=== PATIENT | male | born 1950 | race African-American/Black ===

== ENCOUNTER 2016-12-21 17:46 | Emergency (ER) | payer MEDICARE, MEDICAID | END 2016-12-21 18:54 | disposition home or self-care (01) | LOC: ERS 17:46 | DX: K08.89 Other specified disorders of teeth and supporting structures (principal); E78.5 Hyperlipidemia, unspecified; I25.2 Old myocardial infarction; E11.9 Type 2 diabetes mellitus without complications; F17.290 Nicotine dependence, other tobacco product, uncomplicated; I10 Essential (primary) hypertension | CPT/HCPCS: 99283 ==

== ENCOUNTER 2018-06-07 10:38 | Emergency (ER) | payer MEDICARE, MEDICAID ==
--- NOTE | 2018-06-07 11:26 | RAD ---
CHEST 2 VIEWS:: Date: 06/07/18 HISTORY: Cough. COMPARISON: 05/11/16. FINDINGS: Right-sided ICD. Heart size is normal. The lungs appear clear. IMPRESSION: Right-sided ICD. No acute intrathoracic disease. Atherosclerosis of aorta. POS: [facility]
== END 2018-06-07 13:09 | disposition home or self-care (01) ==
LOC: ERS 10:38
DX: J20.9 Acute bronchitis, unspecified (principal); E78.5 Hyperlipidemia, unspecified; I25.2 Old myocardial infarction; E11.9 Type 2 diabetes mellitus without complications; I10 Essential (primary) hypertension; F17.210 Nicotine dependence, cigarettes, uncomplicated; M10.9 Gout, unspecified; Z79.84 Long term (current) use of oral hypoglycemic drugs; Z79.899 Other long term (current) drug therapy
CPT/HCPCS: 71046; 94640; J7620

== ENCOUNTER 2018-06-15 16:30 | Outpatient (CLI) | payer MEDICARE, MEDICAID ==
--- NOTE | 2018-06-15 17:20 | RAD ---
SINUSES THREE VIEWS: History: Sinusitis. FINDINGS: The frontal air cells and maxillary cells appear aerated with no opacification or air fluid level clarita ntified. Visualized ethmoid and sphenoid air cells also appear clear. IMPRESSION: Unremarkable sinuses. POS: [facility]
== END 2018-06-15 16:31 | disposition home or self-care (01) ==
LOC: BICRAD 16:30
PROVIDERS: ATTEND Internal Medicine
DX: J32.9 Chronic sinusitis, unspecified (principal)
CPT/HCPCS: 70220

== ENCOUNTER 2019-02-23 10:47 | Emergency (ER) | payer MEDICARE, MEDICAID ==
--- NOTE | 2019-02-23 11:55 | RAD ---
EXAM: 3 views of the lumbosacral spine HISTORY: Right low back pain COMPARISON: None FINDINGS: 3 views of the lumbosacral spine shows normal height and alignment of the vertebral bodies without fracture or subluxation. The intervertebral discs are narrowed in the lower lumbar spine with small surrounding osteophytes. Vacuum phenomenon is seen at L4/5 and L5/S1. The sacroiliac joints are unremarkable. IMPRESSION: Degenerative changes of the lumbar spine as above.
[2019-02-23 13:21] LABS: #Basophils 0.1 thou/uL (0.0-0.2); #Eosinphils 0.2 thou/uL (0.0-0.7); #Lymphocytes 2.1 thou/uL (1.20-3.40); #Monocytes 0.5 thou/uL (0.11-0.59); #Neutrophils 4.2 thou/uL (1.40-6.50); %Basophils 1.2 % (0.0-1.0); %Eosinophils 2.4 % (0.0-10.0); %Lymphocytes 30.4 % (21.0-51.0); %Monocytes 6.6 % (0.0-10.0); %Neutrophils 59.4 % (42.0-75.0); Hemoglobin 13.7 g/dL (14.0-18.0); Mean Corpuscular HGB CONC 31.9 g/dL (32.0-36.0); Mean Corpuscular Hemoglobin 27.6 pg (27.0-31.0); Mean Corpuscular Volume 86.4 fL (78.0-98.0); Mean Platelet Volume 10.7 fL (7.4-10.4); Platelet Count 160 thou/uL (130-400); RBC Distribution Width 13.9 % (11.5-14.5); Red Blood Cell (RBC) Count 4.96 mill/uL (4.70-6.10); White Blood Cell (WBC) Count 7.1 thou/uL (4.8-10.8)
[2019-02-23 13:48] LABS: ALT (SGPT) 8 U/L (8-55); AST (SGOT) 12 U/L (5-34); Albumin 3.7 g/dL (3.4-4.8); Alkaline Phosphatase 64 U/L (40-110); Anion Gap 10 mmol/L (10-20); BUN (Urea Nitrogen) 15 mg/dL (8.4-25.7); Bilirubin, Total 0.3 mg/dL (0.2-1.2); Calc. Creatinine Clearance 0 mL/min (70-130); Calcium 8.9 mg/dL (7.8-10.44); Carbon Dioxide 30 mmol/L (23-31); Chloride 106 mmol/L (98-107); Estimated GFR-MDRD 73; Globulin 4.2 g/dL (2.4-3.5); Glucose 82 mg/dL (80-115); Lipase 126 U/L (8-78); Potassium 3.7 mmol/L (3.5-5.1); Protein, Total 7.9 g/dL (5.8-8.1); Sodium 142 mmol/L (136-145)
[2019-02-23 14:26] LABS: Bilirubin Negative (Negative); Blood, Urine Negative (Negative); Clarity Clear (Clear); Glucose, Urine (Dipstick) Normal (Negative); Leukocyte Negative Leu/uL (Negative); Nitrite Negative (Negative); Protein, Urine (Dipstick) Negative (Neg-Trace); Urobilinogen Normal mg/dL (Less than 2)
--- NOTE | 2019-02-23 14:29 | ULT ---
GALLBLADDER ULTRASOUND: HISTORY: Right upper quadrant abdominal pain FINDINGS: The liver demonstrates homogeneous echotexture without focal mass or intrahepatic biliary ductal dila tation. No gallstones, gallbladder wall thickening or pericholecystic fluid are seen. The right kidney and visualized portions of the pancreas are normal. The common duct [id number] in diameter. No free fluid is seen in the Peterson's pouch. IMPRESSION: No significant abnormalities are identified.
--- NOTE | 2019-02-23 15:38 | CT ---
CT ABDOMEN AND PELVIS WITH IV CONTRAST: HISTORY: Right upper abdominal pain, nausea and burning micturition COMPARISON: None FINDINGS: The lung bases are clear. The liver, spleen, pancreas, adrenal glands and kidneys appear normal. No c alcified gallstones are seen. No free air, free fluid or lymphadenopathy seen in the abdomen or pelvis. The small bowel loops are not abnormally dilated. An abnormal appendix is not seen. There are vascular calcifications without evidence of aneurysmal dilatation of the abdominal aorta. There are degenerative changes in the spine. The prostate is enlarged. There are small fat-containing ingui nal hernia. IMPRESSION: No acute process.
== END 2019-02-23 16:13 | disposition home or self-care (01) ==
LOC: ERS 10:47
DX: E78.41 Elevated Lipoprotein(a) (principal); R10.9 Unspecified abdominal pain; E11.9 Type 2 diabetes mellitus without complications; I25.2 Old myocardial infarction; F17.210 Nicotine dependence, cigarettes, uncomplicated; Z79.84 Long term (current) use of oral hypoglycemic drugs; Z79.899 Other long term (current) drug therapy; Z79.82 Long term (current) use of aspirin; Z79.891 Long term (current) use of opiate analgesic
CPT/HCPCS: 36415; 72100; 74177; 76705; 80053; 81003; 83690; 85025; 96360

== ENCOUNTER 2019-05-03 12:16 | Emergency (ER) | payer MEDICARE, OTHER ==
--- NOTE | 2019-05-03 13:49 | CT ---
CT ABDOMEN PELVIS WITHOUT IV CONTRAST: HISTORY:Left-sided flank pain, dysuria COMPARISON: 06/10/2018 DISCLAIMER: Absence of oral and IV contrast reduces the sensitivity of the exam particularly for the evaluation of solid organs and bowel. FINDINGS: The lung bases are clear. No free air or free fluid is seen in the abdomen or pelvis. No calcified ga llstones are noted. There is a punctate calculus in the left kidney. No calculi are seen in the right kidney, either uret ers or the urinary bladder. No hydroureteronephrosis seen on either side. The prostate is enlarged. There are vascular calcifications without evidence of aneurysmal dilatation of the abdominal aorta. D egenerative changes are seen in the spine. There is a small fat-containing inguinal hernia. IMPRESSION: Punctate nonobstructing left renal calculus.
[2019-05-03 13:52] LABS: Bilirubin Negative (Negative); Blood, Urine Negative (Negative); Clarity Clear (Clear); Glucose, Urine (Dipstick) Normal (Negative); Leukocyte Negative Leu/uL (Negative); Nitrite Negative (Negative); Protein, Urine (Dipstick) Negative (Neg-Trace); Urobilinogen Normal mg/dL (Less than 2)
[2019-05-03 14:18] LABS: #Basophils 0.1 thou/uL (0.0-0.2); #Eosinphils 0.1 thou/uL (0.0-0.7); #Lymphocytes 2.2 thou/uL (1.20-3.40); #Monocytes 0.4 thou/uL (0.11-0.59); #Neutrophils 4.8 thou/uL (1.40-6.50); %Eosinophils 1.9 % (0.0-10.0); %Lymphocytes 28.6 % (21.0-51.0); %Monocytes 5.6 % (0.0-10.0); %Neutrophils 62.9 % (42.0-75.0); Hemoglobin 14.1 g/dL (14.0-18.0); Mean Corpuscular HGB CONC 32.6 g/dL (32.0-36.0); Mean Corpuscular Volume 85.8 fL (78.0-98.0); Platelet Count 164 thou/uL (130-400); RBC Distribution Width 13.5 % (11.5-14.5); Red Blood Cell (RBC) Count 5.05 mill/uL (4.70-6.10); White Blood Cell (WBC) Count 7.7 thou/uL (4.8-10.8)
[2019-05-03 14:39] LABS: ALT (SGPT) 7 U/L (8-55); AST (SGOT) 14 U/L (5-34); Albumin 3.5 g/dL (3.4-4.8); Alkaline Phosphatase 61 U/L (40-110); Anion Gap 13 mmol/L (10-20); BUN (Urea Nitrogen) 18 mg/dL (8.4-25.7); Bilirubin, Total 0.3 mg/dL (0.2-1.2); Calc. Creatinine Clearance 0 mL/min (70-130); Calcium 8.6 mg/dL (7.8-10.44); Carbon Dioxide 21 mmol/L (23-31); Chloride 110 mmol/L (98-107); Estimated GFR-MDRD 67; Globulin 4.3 g/dL (2.4-3.5); Glucose 151 mg/dL (80-115); Potassium 3.8 mmol/L (3.5-5.1); Protein, Total 7.8 g/dL (5.8-8.1); Sodium 140 mmol/L (136-145)
[2019-05-03] MEDS ORDERED: Ketorolac Tromethamine 60 MG/2 ML VIAL ONE (14:56)
== END 2019-05-03 15:30 | disposition home or self-care (01) ==
LOC: ERS 12:16
DX: M54.5 Low back pain (principal); F17.210 Nicotine dependence, cigarettes, uncomplicated; E11.9 Type 2 diabetes mellitus without complications; M10.9 Gout, unspecified; F17.290 Nicotine dependence, other tobacco product, uncomplicated; I10 Essential (primary) hypertension; I25.2 Old myocardial infarction; Z79.899 Other long term (current) drug therapy; Z79.891 Long term (current) use of opiate analgesic; Z79.82 Long term (current) use of aspirin; Z79.84 Long term (current) use of oral hypoglycemic drugs
CPT/HCPCS: 36415; 74176; 80053; 81003; 85025; 87086; 96372; J1885

== ENCOUNTER 2019-06-28 10:54 | Emergency (ER) | payer MEDICARE, OTHER ==
[2019-06-28 11:40] LABS: Bilirubin Negative (Negative); Blood, Urine Negative (Negative); Clarity Clear (Clear); Glucose, Urine (Dipstick) Normal (Negative); Leukocyte Negative Leu/uL (Negative); Nitrite Negative (Negative); Protein, Urine (Dipstick) 20 mg/dL (Neg-Trace); Urobilinogen Normal mg/dL (Less than 2)
--- NOTE | 2019-06-28 11:54 | CT ---
CT abdomen and pelvis noncontrast HISTORY: Flank pain. COMPARISON: 05/03/2019. FINDINGS: Each renal collecting system, ureter, and urinary bladder are decompressed. The 0.2 cm calc ulus at the superior pole of the left kidney is unchanged. It may be vascular in origin, as there are other arterial calcification throughout the abdomen. Lack of contrast limits evaluation for other abnormalities. No evidence of bowel obstruction. There a re degenerative changes lumbar spine. Subtle stranding within the fat immediately surrounding the pancreatic head. No free fluid or free ai r. IMPRESSION : Tiny nonobstructing left renal calculus appears stable. Subtle inflammation adjacent to the pancreatic head. Clinical correlation regarding other signs and s ymptoms of acute pancreatitis is required. Atherosclerosis.
[2019-06-28 11:59] LABS: #Eosinphils 0.2 thou/uL (0.0-0.7); #Lymphocytes 2.4 thou/uL (1.20-3.40); #Monocytes 0.5 thou/uL (0.11-0.59); #Neutrophils 4.5 thou/uL (1.40-6.50); %Basophils 0.6 % (0.0-1.0); %Eosinophils 2.2 % (0.0-10.0); %Lymphocytes 31.3 % (21.0-51.0); %Monocytes 6.4 % (0.0-10.0); %Neutrophils 59.6 % (42.0-75.0); Mean Corpuscular HGB CONC 31.8 g/dL (32.0-36.0); Mean Corpuscular Hemoglobin 26.9 pg (27.0-31.0); Mean Corpuscular Volume 84.7 fL (78.0-98.0); Mean Platelet Volume 11.5 fL (7.4-10.4); Platelet Count 145 thou/uL (130-400); RBC Distribution Width 14.1 % (11.5-14.5); Red Blood Cell (RBC) Count 5.21 mill/uL (4.70-6.10); White Blood Cell (WBC) Count 7.6 thou/uL (4.8-10.8)
[2019-06-28 12:38] LABS: ALT (SGPT) 7 U/L (8-55); AST (SGOT) 17 U/L (5-34); Albumin 3.5 g/dL (3.4-4.8); Alkaline Phosphatase 60 U/L (40-110); Anion Gap 10 mmol/L (10-20); BUN (Urea Nitrogen) 14 mg/dL (8.4-25.7); Bilirubin, Total 0.5 mg/dL (0.2-1.2); Calc. Creatinine Clearance 0 mL/min (70-130); Calcium 8.7 mg/dL (7.8-10.44); Carbon Dioxide 26 mmol/L (23-31); Chloride 105 mmol/L (98-107); Estimated GFR-MDRD 63; Globulin 4.2 g/dL (2.4-3.5); Glucose 152 mg/dL (80-115); Protein, Total 7.7 g/dL (5.8-8.1); Sodium 137 mmol/L (136-145)
== END 2019-06-28 14:09 | disposition home or self-care (01) ==
LOC: ERS 10:54
DX: K85.90 Acute pancreatitis without necrosis or infection, unspecified (principal); I10 Essential (primary) hypertension; M10.9 Gout, unspecified; E78.5 Hyperlipidemia, unspecified; I25.2 Old myocardial infarction; E11.9 Type 2 diabetes mellitus without complications; F17.210 Nicotine dependence, cigarettes, uncomplicated; Z79.899 Other long term (current) drug therapy; Z79.82 Long term (current) use of aspirin; Z79.84 Long term (current) use of oral hypoglycemic drugs
CPT/HCPCS: 36415; 74176; 80053; 81003; 83605; 83690; 85025; 96360

== ENCOUNTER 2019-09-24 12:04 | Emergency (ER) | payer MEDICARE, MEDICAID, OTHER ==
[2019-09-25 13:14] LABS: SARS-CoV-2 MS2 Positive; SARS-CoV-2 N Gene Negative; SARS-CoV-2 S Gene Negative; SARS-CoV-2 orf1ab Negative
== END 2019-09-24 12:53 | disposition home or self-care (01) ==
LOC: ERS 12:04
DX: R06.2 Wheezing (principal); R06.02 Shortness of breath; Z20.828 Contact with and (suspected) exposure to other viral communicable diseases; I10 Essential (primary) hypertension; I25.2 Old myocardial infarction; E11.9 Type 2 diabetes mellitus without complications; F17.290 Nicotine dependence, other tobacco product, uncomplicated
CPT/HCPCS: 99283; U0003; 87635

== ENCOUNTER 2019-09-29 09:30 | Inpatient (IN) | payer MEDICARE, MEDICAID ==
--- NOTE | 2019-09-29 10:18 | RAD ---
PORTABLE SUPINE CHEST: Date: 09/29/2019 INDICATION: CPR. Code. COMPARISON: Chest exam of 06/07/2018. FINDINGS/IMPRESSION: ET tube and NG tube are in place. There is cardiomegaly with vascular congestion, which is accentuate d by the supine projection. No pneumothorax or consolidation. Hazy perihilar densities could represen t edema or infiltrate. The AICD leads and pacemaker leads appear unchanged in position. POS: [facility]
[2019-09-29 10:34] LABS: #Eosinphils 0.4 thou/uL (0.0-0.7); #Lymphocytes 4.6 thou/uL (1.20-3.40); #Monocytes 0.6 thou/uL (0.11-0.59); #Neutrophils 5.5 thou/uL (1.40-6.50); %Basophils 0.3 % (0.0-1.0); %Eosinophils 3.9 % (0.0-10.0); %Monocytes 5.2 % (0.0-10.0); %Neutrophils 49.6 % (42.0-75.0); Hemoglobin 11.9 g/dL (14.0-18.0); Mean Corpuscular HGB CONC 29.6 g/dL (32.0-36.0); Mean Corpuscular Hemoglobin 26.8 pg (27.0-31.0); Mean Corpuscular Volume 90.4 fL (78.0-98.0); Mean Platelet Volume 10.7 fL (7.4-10.4); Platelet Count 196 thou/uL (130-400); RBC Distribution Width 14.2 % (11.5-14.5); Red Blood Cell (RBC) Count 4.46 mill/uL (4.70-6.10); White Blood Cell (WBC) Count 11.1 thou/uL (4.8-10.8)
[2019-09-29 10:45] LABS: Acetaminophen Less than 6.0 mcg/mL (10.0-30.0); Alcohol Less than 10 mg/dL (Less than 10); CK (CPK) 88 U/L (30-200); Lipase 110 U/L (8-78); Magnesium 4.7 mg/dL (1.6-2.6); Salicylate Less than 8.0 mg/dL (15.0-30.0)
[2019-09-29 10:50] LABS: ALT (SGPT) 50 U/L (8-55); AST (SGOT) 49 U/L (5-34); Albumin 3.2 g/dL (3.4-4.8); Alkaline Phosphatase 59 U/L (40-110); Anion Gap 23 mmol/L (10-20); BUN (Urea Nitrogen) 16 mg/dL (8.4-25.7); Bilirubin, Total 0.4 mg/dL (0.2-1.2); Calc. Creatinine Clearance 0 mL/min (70-130); Carbon Dioxide 17 mmol/L (23-31); Chloride 105 mmol/L (98-107); Estimated GFR-MDRD 44; Globulin 3.2 g/dL (2.4-3.5); Glucose 261 mg/dL (83-110); INR-International Normal Ratio 1.2; PTT 31.7 sec (22.9-36.1); Protein, Total 6.4 g/dL (5.8-8.1); Prothrombin Time 15.6 sec (12.0-14.7); Sodium 141 mmol/L (136-145)
[2019-09-29 10:51] LABS: Actual Bicarbonate (HCO3a) 13.4 mEq/L (22-28); Analyzer IN Cardio ER; Base Excess (BEa) -16.7 mEq/L (-2.0 to +3.0); CO2 Tension 48.7 mmHg (35.0-45.0); Calcium, Ionized (arterial) 1.24 mmol/L (1.12-1.30); Carboxyhemoglobin (COHb) 0.4 gm% (0.0-3.0); Hemoglobin (Hb) 12.5 g/dL (14.0-18.0); O2 Tension (PaO2), arterial 210.5 mmHg (> 70.0); Potassium - ABG Lab 4.36 mmol/L (3.70-5.30)
[2019-09-29 11:07] LABS: CKMB 1.7 ng/mL (0-6.6)
[2019-09-29 11:10] LABS: ALV-art Gradient 441.625 (0-20); Puncture Site LRA; pH, Arterial 7.06 (7.35-7.45)
[2019-09-29] MEDS ORDERED: Norepinephrine 8 MG/0.9% NS 250 ML ONE (11:12)
[2019-09-29 11:22] LABS: RBC Morphology Normal
[2019-09-29 11:47] LABS: SARS-CoV-2 NAA Rapid Test Not Detected (NotDetected)
--- NOTE | 2019-09-29 11:59 | CT ---
Exam: Chest CT without contrast HISTORY: CPR in progress. Pacemaker issues. Ventricular tachycardia. COMPARISON: none FINDINGS: Lower neck and axilla: No masses or lymphadenopathy Mediastinum: Enlarged prevascular lymph node measures 1.5 x 0.9 cm. Adjacent enlarged prevascular lym ph node is noted. Normal heart size. No pericardial effusion. Pacing device: There is a transvenous pacemaker with lead positioned in the region of the right atriu m, right ventricle. Additional left-sided transvenous pacemaker is are also noted. The leads appear to terminate in the region right atrium, right ventricle and possibly the coronary sinus. There is a lead that crosses midline appears to course back and may terminate in the region of the right atrium. The exact course of the lead is difficult to evaluate due to motion and adjacent leads. Visualized aorta has a grossly normal caliber Subdiaphragmatic structures do not demonstrate any acute abnormality Pleural spaces: Small to moderate bilateral pleural effusions. No pneumothorax LUNGS: Bibasilar consolidation may represent atelectasis, pneumonia or mass. Additional consolidation is noted in the left and right upper lobe adjacent to the major fissure. Patchy groundglass opacities in the lung parenchyma are identified. Trachea: Endotracheal tube terminates at the midportion of the trachea. Nasogastric tube extends stom ach. No lytic or blastic lesions within the osseous structures IMPRESSION: 1. Extensive pacing wires as described above. Limited evaluation due to motion and the overall number wires present. 2. Bilateral pleural effusion with adjacent consolidation which may represent atelectasis, aspiration .
[2019-09-29] MEDS ORDERED: Lorazepam 2 MG/ML VIAL ONE (12:24)
[2019-09-29 12:35] LABS: Actual Bicarbonate (HCO3a) 17.3 mEq/L (22-28); Analyzer IN Cardio ER; Calcium, Ionized (arterial) 1.21 mmol/L (1.12-1.30); Carboxyhemoglobin (COHb) 0.3 gm% (0.0-3.0); Hemoglobin (Hb) 12.5 g/dL (14.0-18.0); O2 Tension (PaO2), arterial 101.5 mmHg (> 70.0); Potassium - ABG Lab 4.58 mmol/L (3.70-5.30); pH, Arterial 6.98 (7.35-7.45)
[2019-09-29 12:36] LABS: Puncture Site RFA
[2019-09-29] MEDS ORDERED: Sodium Bicarb 50 MEQ/50 ML Abboject 8.4% SYRINGE ONE ×3 (12:39→13:07)
[2019-09-29] MEDS ORDERED: Sodium Bicarbonate 2.5 MEQ/5 ML VIAL ONE (12:39)
[2019-09-29] MEDS ORDERED: Calcium Chloride 1 GM/10 ML Abboject SYRINGE ONE (13:07)
[2019-09-29] MEDS ORDERED: EPINEPHrine 1 MG/10 ML Abboject SYRINGE ONE ×2 (13:07)
[2019-09-29] MEDS ORDERED: Magnesium 5 GM/10 ML Abboject SYRINGE ONE (13:07)
[2019-09-29] MEDS ORDERED: Amiodarone 150 MG/3 ML VIAL ONE (13:07)
--- NOTE | 2019-09-29 14:02 | CT ---
CT HEAD WITHOUT IV CONTRAST COMPARISON: 08/24/2014 HISTORY: Altered mental status. Patient is post CPR. Respiratory distress. TECHNIQUE: Axial CT imaging at 5 mm intervals from vertex through skull base without contrast FINDINGS: The randall-white differentiation is maintained with evidence of mild chronic small vessel ischemic espana ges. Mild cerebral volume loss is present. There is no evidence of an acute cortical infarction, hemorrhage, mass effect, or midline shift. The ventricular system is normal in size, shape, and posit ion. Mucosal thickening is seen in the ethmoidal air cells bilaterally. Mucus retention cyst left maxillar y antrum. Trace mucosal thickening right sphenoid sinus. Mastoid air cells are clear. Partial visualization of endotracheal tube and nasogastric tubes are seen. Osseous structures appear intact. No other interval change. IMPRESSION: 1. No acute intracranial abnormality demonstrated.
--- NOTE | 2019-09-29 14:21 | PDOC.HHP ---
Hospitalist HPI - History of Present Illness sob and syncope History of Present Illness: 69 years old -[place] Citizen male with past medical history significant for cardiomyopathy with EF of 15% status post AICD. EMS called today as patient was having more and more short of breath when they arrived patient was alert however he became lethargic and had lost a pulse initially found to be in V. tach then shocked him and patient began CPR patient then went to V. fib patient found to be in V. tach and V. fib CPR was initiated and epi was given at 923 this morning another 1 at 933 as well as amnio and patient had LMA on arrival to the emergency room with CPR in progress and during my exam he is intubated on Levophed and epinephrine drip Case was discussed with cardiology reported the patient failed to follow-up with him. during my exam patient is jerking movement no follow commands or answer question mechanical ventilation is being moved to CCU. Past medical history significant for advanced cardiomyopathy with EF 15% hypertension type 2 diabetes COPD pulmonary hypertension chronic left bundle branch block and obesity Allergies no known drug allergies Social history patient has history of no alcohol denies tobacco and no illicit drug use as per record Family history Per records significant for diabetes and heart blocks Hospitalist ROS - Review of Systems ROS unobtainable: due to mental status - Medication Medications: Medication Instructions Recorded Confirmed Type Aspirin [Ecotrin Low Strength] 81 mg PO HS 02/15/13 02/15/13 History Carvedilol [Coreg] 25 mg PO BID 02/15/13 02/15/13 History Lisinopril [Zestril] 5 mg PO HS 02/15/13 02/15/13 History Potassium Chloride [K-Dur] 20 meq PO HS 02/15/13 02/15/13 History Pravastatin Sodium [Pravachol] 20 mg PO HS 02/15/13 02/15/13 History Ventolin HFA Inhaler 2 puff INH Q4HR PRN 02/15/13 02/15/13 History glipiZIDE 5 mg PO DAILY-AC 02/15/13 02/15/13 History metFORMIN HCl 1,000 mg PO BID-WM 02/15/13 02/15/13 History Acetaminophen [Tylenol Regular 650 mg PO Q4H PRN #0 tab 02/18/13 Rx Strength] Cefadroxil Hydrate [Duricef] 500 mg PO BID 02/18/13 02/18/13 History Furosemide [Lasix] 40 mg PO 0900,1400 #0 tab 02/18/13 Rx Hospitalist History - Past Medical History Source: old records Cardiac: reports: CAD, CHF - Exam General Appearance: awake alert General - other findings: Orally intubated jerking and acute distress ENT: dry oral mucosa Neck: supple Heart: RRR Respiratory: no wheezes, no rales Respiratory - other findings: On mechanical ventilation Gastrointestinal: soft, non-tender Extremities: no cyanosis Skin: no lesions Neurological - other findings: Unable to obtain patient not following commands Musculoskeletal - other findings: Drinking movement Psychiatric: lethargic Hospitalist Results - Labs Result Diagrams: 09/29/19 10:16 09/29/19 10:16 Lab results: WBC 11.1 thou/uL (4.8-10.8) H 09/29/19 10:16 Hgb 11.9 g/dL (14.0-18.0) L 09/29/19 10:16 Hct 40.4 % (42.0-52.0) L 09/29/19 10:16 MCV 90.4 fL (78.0-98.0) 09/29/19 10:16 Plt Count 196 thou/uL (130-400) 09/29/19 10:16 Neutrophils % 49.6 % (42.0-75.0) 09/29/19 10:16 ABG pH 6.98 (7.35-7.45) L* 09/29/19 12:22 ABG pCO2 75.0 mmHg (35.0-45.0) H* 09/29/19 12:22 ABG pO2 101.5 mmHg (> 70.0) H 09/29/19 12:22 Sodium 141 mmol/L (136-145) 09/29/19 10:16 Potassium 4.0 mmol/L (3.5-5.1) 09/29/19 10:16 Chloride 105 mmol/L (98-107) 09/29/19 10:16 Carbon Dioxide 17 mmol/L (23-31) L 09/29/19 10:16 BUN 16 mg/dL (8.4-25.7) 09/29/19 10:16 Creatinine 1.84 mg/dL (0.7-1.3) H 09/29/19 10:16 Glucose 261 mg/dL (83-110) H 09/29/19 10:16 Lactic Acid 7.0 mmol/L (0.5-2.2) H* 09/29/19 13:02 Calcium 9.0 mg/dL (7.8-10.44) 09/29/19 10:16 Total Bilirubin 0.4 mg/dL (0.2-1.2) 09/29/19 10:16 AST 49 U/L (5-34) H 09/29/19 10:16 ALT 50 U/L (8-55) 09/29/19 10:16 Alkaline Phosphatase 59 U/L (40-110) 09/29/19 10:16 Creatine Kinase 88 U/L (30-200) 09/29/19 10:16 CK-MB (CK-2) 1.7 ng/mL (0-6.6) 09/29/19 10:16 Troponin I 0.042 ng/mL (< 0.028) H 09/29/19 10:16 C-Reactive Protein 1.62 mg/dL (= or < 0.5) H 09/29/19 10:16 B-Natriuretic Peptide 763.6 pg/mL (0-100) H 09/29/19 10:16 Serum Total Protein 6.4 g/dL (5.8-8.1) 09/29/19 10:16 Albumin 3.2 g/dL (3.4-4.8) L 09/29/19 10:16 Lipase 110 U/L (8-78) H 09/29/19 10:16 - Radiology Interpretation CT scan - chest Additional Comment: Extensive pacing wires with bilateral pleural effusion with adjacent consolidation may represent atelectasis versus aspiration CT scan - head Additional Comment: No acute intracranial abnormalities Hospitalist H&P A/P - Problem (1) Cardiac arrest Code(s): I46.9 - CARDIAC ARREST, CAUSE UNSPECIFIED Status: Acute (2) Acute respiratory disease Code(s): J06.9 - ACUTE UPPER RESPIRATORY INFECTION, UNSPECIFIED Status: Acute (3) Cardiomyopathy Code(s): I42.9 - CARDIOMYOPATHY, UNSPECIFIED Status: Active (4) Chronic obstructive lung disease Code(s): J44.9 - CHRONIC OBSTRUCTIVE PULMONARY DISEASE, UNSPECIFIED Status: Active (5) Diabetes mellitus type 2 Code(s): E11.9 - TYPE 2 DIABETES MELLITUS WITHOUT COMPLICATIONS Status: Active - Plan Plan: Patient most likely rest due to arrhythmia given his low EF of 15%, will need pacemaker AICD interrogation Patient will be admitted to CCU unit, will continue mechanical ventilation, we are consulted cardiology and will notify bag liner Mechanical ventilation and vent management as per CCU theraputic hypothermia as per cc Continue with Levophed and epinephrine Follow further cardiology recommendations Start on broad-spectrum antibiotics Continue with supportive care Monitor electrolytes and replace as needed DVT prophylaxis with Lovenox GI prophylaxis Patient is full code for now will discuss with family regarding poor prognosis Patient will be admitted under hospitalist services to the ICU with anticipated length of stay for over 2 midnights
[2019-09-29] MEDS ORDERED: Vecuronium 10 MG VIAL ONE (14:26)
[2019-09-29 14:44] LABS: Actual Bicarbonate (HCO3a) 19.1 mEq/L (22-28); CO2 Tension 45.3 mmHg (35.0-45.0); Calcium, Ionized (arterial) 1.13 mmol/L (1.12-1.30); Carboxyhemoglobin (COHb) 0.5 gm% (0.0-3.0); Hemoglobin (Hb) 12.3 g/dL (14.0-18.0); O2 Tension (PaO2), arterial 115.9 mmHg (> 70.0); Potassium - ABG Lab 4.45 mmol/L (3.70-5.30)
[2019-09-29] MEDS ORDERED: Dextrose 5% in Water 1,000 ML IV PRN (14:45)
[2019-09-29] MEDS ORDERED: HumaLOG 300 UNITS/3 ML VIAL SC PRN (14:45)
[2019-09-29] MEDS ORDERED: Dextrose 50% Abboject 50 ML SYRINGE SLOW IVP PRN (14:45)
[2019-09-29 14:47] LABS: ALV-art Gradient 540.475 (0-20); Puncture Site RRA; pH, Arterial 7.24 (7.35-7.45)
[2019-09-29] MEDS ORDERED: Norepinephrine 8 MG/0.9% NS 250 ML IVPB SCH (15:00)
[2019-09-29] MEDS ORDERED: Ventilator Sedation Protocol 1 EACH FS SCH (15:00)
[2019-09-29] MEDS ORDERED: Propofol BOLUS 1,000 MG/100 ML VIAL IV PRN (15:07)
[2019-09-29] MEDS ORDERED: DISCONTINUE PREVIOUS NARCOTIC PAIN MEDICATIONS AND BENZODIAZEPINES FS SCH (15:07)
[2019-09-29] MEDS ORDERED: Fentanyl BOLUS 250 ML IVPB PRN (15:07)
[2019-09-29] MEDS ORDERED: Morphine 2 MG/ML VIAL SLOW IVP PRN (15:07)
[2019-09-29] MEDS ORDERED: fentaNYL Citrate/PF 2,000 MCG in Sodium Chloride 0.9% 60 ML IV SCH (15:07)
[2019-09-29] MEDS: Vecuronium 10 MG VIAL IVP PRN ×3 (15:24→21:15)
[2019-09-29] MEDS: Lorazepam 2 MG/ML VIAL SLOW IVP PRN ×3 (15:25→18:13)
[2019-09-29] MEDS: Sodium Chloride 0.9% 1,000 ML IV SCH (15:33)
--- NOTE | 2019-09-29 15:42 | CON ---
DATE OF CONSULTATION: 09/29/2019 minutes of critical care time. HISTORY: I was notified by the nurses around 2:30 of this patient's arrival to the CCU. I had not been called previously by the hospitalist or the ER doctor. The patient apparently arrived at the emergency room at around 9:30 this morning, full arrest, after being found down at home. I am told he had LMA on arrival. He was subsequently intubated. There was a question whether or not he was receiving oxygen through the LMA. It took several more minutes for him to achieve a pulse. It looks like total down time was well over 30 minutes. On arrival to the CCU, the patient was having profound myoclonic jerking, which required paralysis. I have no idea how long he has been jerking that hard. PAST MEDICAL HISTORY: 1. cardiomyopathy with EF 15%. 2. AICD placement. 3. Mild GALEN by sleep study done in 2015. 4. Previous ventricular fibrillation detected by AICD in 2012. 5. History of left bundle branch block. 6. Class III heart failure. 7. Hyperlipidemia. 8. Diabetes mellitus. SOCIAL HISTORY: Apparently he does not drink, does not smoke, does not use illicit drugs. ALLERGIES: NONE. PAST SURGICAL HISTORY: AICD placement. REVIEW OF SYSTEMS: Cannot be obtained. The patient is currently intubated. PHYSICAL EXAMINATION: VITAL SIGNS: Temperature was 98 when he arrived in the CCU, pulse 67, O2 saturation 99%, blood pressure 150/86. This patient is intubated and paralyzed. HEENT: Pupils are 4 mm, but react to light. Sclerae anicteric. Oropharynx, ET tube and OG tube in place. NECK: No adenopathy or JVD. CHEST: AICD palpable upper quadrant of chest. Lungs with crackles bilaterally. CARDIOVASCULAR: S1 and S2 muffled. ABDOMEN: Soft, obese, nontender, and nondistended. EXTREMITIES: No clubbing or cyanosis. He has a femoral triple lumen on the right. He has an anterior tibial interosseous catheter in place. LABORATORY DATA: Sodium 141, potassium 4.0, chloride 105, CO2 of 17, BUN 16, creatinine 1.8, glucose 261. Lactate is 12.7. BNP 763. Lipase 110. White blood cell count 11.1, hematocrit 40, and platelet count 196. INR 1.2. A pH of 7.23, pCO2 of 38, PO2 of 141, SIMV rate 30, tidal volume 500, PEEP 5, pressure support 10, FiO2 of 100%. His COVID rapid test was negative. His x-ray showed the proper ET tube placement without mass, effusion, or infiltrate. The EKG has not come upstairs from the emergency room yet, so I have not been able to review that. ASSESSMENT: 1. Sudden cardiac , presumed secondary to ventricular fibrillation. 2. Out of hospital arrest with prolonged down time. 3. Myoclonic jerking reflective of profound neurologic damage. 4. Underlying cardiomyopathy. 5. Diabetes mellitus. 6. Acute respiratory failure requiring mechanical ventilation. 7. Metabolic acidosis secondary to lactic acidosis from prolonged down time. PLAN: 1. Continue mechanical ventilation at current settings. 2. Levophed and epinephrine as needed for hypotension. 3. Cardiology consult. 4. Initiate Keppra in case this is underlying seizures. 5. Paralytics as needed. 6. Therapeutic hypothermia. 7. Protonix for GI prophylaxis and Lovenox for DVT prophylaxis. The above encompassed 70 minutes of critical care time. Job ID: [id number]
[2019-09-29] MEDS ORDERED: Pantoprazole 40 MG VIAL IVP SCH (15:45)
[2019-09-29] MEDS ORDERED: levETIRAcetam In NaCl (Iso-Os) 1,000 MG in Premix Bag 1 BAG IVPB SCH ×3 (15:45→21:00)
[2019-09-29] MEDS ORDERED: Enoxaparin Sodium 40 MG/0.4 ML SYRINGE SC SCH (15:45)
[2019-09-29] MEDS: Piperacillin/Tazobactam 3.375 GM in Sodium Chloride 0.9% 100 ML IVPB SCH ×2 (16:13→21:41)
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
[2019-09-29] MEDS ORDERED: Piperacillin/Tazobactam 3.375 GM in Sodium Chloride 0.9% 100 ML IVPB SCH (18:00)
[2019-09-29] MEDS: Propofol 1,000 MG/100 ML VIAL IV PRN ×2 (18:14→22:34)
[2019-09-29 20:00] LABS: Bacteria/HPF 4+ HPF (None Seen); Bilirubin Negative (Negative); Blood, Urine 2+ (Negative); Clarity Clear (Clear); Glucose, Urine (Dipstick) Normal (Negative); Ketone, Urine 10 mg/dL (Negative); Leukocyte Negative Leu/uL (Negative); Nitrite Negative (Negative); Protein, Urine (Dipstick) 50 mg/dL (Neg-Trace); Specific Gravity, Urine 1.007 (1.002-1.036); Squamous Epithelial 0-3 HPF (0-3); Transitional Epithelial 0-3 HPF (None Seen); Urobilinogen Normal mg/dL (Less than 2)
[2019-09-29 20:20] LABS: INR-International Normal Ratio 1.3; PTT 33.6 sec (22.9-36.1); Prothrombin Time 16.2 sec (12.0-14.7)
[2019-09-29 20:22] LABS: #Lymphocytes 1.4 thou/uL (1.20-3.40); #Monocytes 0.9 thou/uL (0.11-0.59); #Neutrophils 14.8 thou/uL (1.40-6.50); %Basophils 0.3 % (0.0-1.0); %Eosinophils 0.2 % (0.0-10.0); %Monocytes 5.3 % (0.0-10.0); %Neutrophils 86.3 % (42.0-75.0); Mean Corpuscular HGB CONC 32.5 g/dL (32.0-36.0); Mean Corpuscular Hemoglobin 27.9 pg (27.0-31.0); Mean Corpuscular Volume 85.7 fL (78.0-98.0); Mean Platelet Volume 10.8 fL (7.4-10.4); Platelet Count 165 thou/uL (130-400); RBC Distribution Width 14.1 % (11.5-14.5); White Blood Cell (WBC) Count 17.1 thou/uL (4.8-10.8)
[2019-09-29 20:39] LABS: Anion Gap 15 mmol/L (10-20); BUN (Urea Nitrogen) 30 mg/dL (8.4-25.7); CK (CPK) 601 U/L (30-200); Calc. Creatinine Clearance 53 mL/min (70-130); Calcium 8.3 mg/dL (7.8-10.44); Carbon Dioxide 21 mmol/L (23-31); Chloride 111 mmol/L (98-107); Estimated GFR-MDRD 30; Glucose 124 mg/dL (83-110); Magnesium 3.3 mg/dL (1.6-2.6); Phosphorus 2.9 mg/dL (2.3-4.7); Potassium 3.6 mmol/L (3.5-5.1); Sodium 143 mmol/L (136-145)
[2019-09-29 21:04] LABS: CKMB 11.7 ng/mL (0-6.6)
[2019-09-29] MEDS ORDERED: Sterile Water 10 ML ONE (21:12)
[2019-09-30] MEDS: Vecuronium 10 MG VIAL IVP PRN ×5 (01:51→22:29)
[2019-09-30 01:58] LABS: #Lymphocytes 1.4 thou/uL (1.20-3.40); #Monocytes 0.6 thou/uL (0.11-0.59); #Neutrophils 12.6 thou/uL (1.40-6.50); %Basophils 0.1 % (0.0-1.0); %Eosinophils 0.3 % (0.0-10.0); %Lymphocytes 9.7 % (21.0-51.0); %Monocytes 4.2 % (0.0-10.0); %Neutrophils 85.7 % (42.0-75.0); Hemoglobin 12.4 g/dL (14.0-18.0); Mean Corpuscular HGB CONC 31.7 g/dL (32.0-36.0); Mean Corpuscular Hemoglobin 27.3 pg (27.0-31.0); Mean Corpuscular Volume 85.9 fL (78.0-98.0); Mean Platelet Volume 10.9 fL (7.4-10.4); Platelet Count 163 thou/uL (130-400); RBC Distribution Width 14.2 % (11.5-14.5); Red Blood Cell (RBC) Count 4.54 mill/uL (4.70-6.10); White Blood Cell (WBC) Count 14.7 thou/uL (4.8-10.8)
[2019-09-30 02:04] LABS: INR-International Normal Ratio 1.3; Prothrombin Time 15.8 sec (12.0-14.7)
[2019-09-30 02:05] LABS: PTT 33.2 sec (22.9-36.1)
[2019-09-30 02:17] LABS: Calcium 8.2 mg/dL (7.8-10.44); Magnesium 3.2 mg/dL (1.6-2.6); Phosphorus 3.3 mg/dL (2.3-4.7)
[2019-09-30 02:29] LABS: CKMB 12.7 ng/mL (0-6.6); Critical Call Chem Troponin I RESULT DECREASING; Troponin I 0.836 ng/mL (< 0.028)
[2019-09-30 02:30] LABS: Anion Gap 19 mmol/L (10-20); BUN (Urea Nitrogen) 33 mg/dL (8.4-25.7); Calc. Creatinine Clearance 52 mL/min (70-130); Calcium 8.2 mg/dL (7.8-10.44); Carbon Dioxide 17 mmol/L (23-31); Chloride 110 mmol/L (98-107); Estimated GFR-MDRD 28; Glucose 136 mg/dL (83-110); Potassium 3.5 mmol/L (3.5-5.1); Sodium 142 mmol/L (136-145)
[2019-09-30] MEDS: levETIRAcetam In NaCl (Iso-Os) 1,000 MG in Premix Bag 1 BAG IVPB SCH ×2 (03:18→15:48)
[2019-09-30] MEDS: Propofol 1,000 MG/100 ML VIAL IV PRN ×4 (03:53→19:21)
[2019-09-30] MEDS: Piperacillin/Tazobactam 3.375 GM in Sodium Chloride 0.9% 100 ML IVPB SCH ×4 (03:53→21:57)
[2019-09-30] MEDS: Sodium Chloride 0.9% 1,000 ML IV SCH ×2 (06:29→17:48)
[2019-09-30 07:51] LABS: Actual Bicarbonate (HCO3a) 16.7 mEq/L (22-28); Base Excess (BEa) -5.4 mEq/L (-2.0 to +3.0); Hemoglobin (Hb) 12.1 g/dL (14.0-18.0); O2 Tension (PaO2), arterial 61.9 mmHg (> 70.0); Potassium - ABG Lab 3.39 mmol/L (3.70-5.30)
--- NOTE | 2019-09-30 07:51 | RAD ---
Portable frontal chest radiograph: 09/30/2019 COMPARISON: 09/29/2019 HISTORY: Pneumonia FINDINGS: Detailed assessment is limited secondary to body habitus, portable technique, and artifact overlying the chest. Stable endotracheal tube and nasogastric tube. Stable transvenous pacing device. Hazy increased density is noted within the left lung base with obscuration of the left hemidi aphragm, new when compared to the prior exam. Findings suggest partial consolidation/collapse of the left lower lobe and/or small volume left pleural effusion. There is also new hazy increased densi ty in the right perihilar region and right lung base. IMPRESSION: Interval development of increased density in both lung bases, left greater than right. Fi ndings suggest pulmonary edema. Infectious pneumonitis or aspiration cannot be excluded. Short-term follow-up imaging of the chest following treatment advised.
[2019-09-30 07:54] LABS: CO2 Tension 23.9 mmHg (35.0-45.0)
[2019-09-30 07:56] LABS: pH, Arterial 7.46 (7.35-7.45)
[2019-09-30 07:57] LABS: Puncture Site L.R.
[2019-09-30 07:59] LABS: ALV-art Gradient 407.325 (0-20)
[2019-09-30] MEDS: Enoxaparin Sodium 40 MG/0.4 ML SYRINGE SC SCH (08:14)
[2019-09-30 08:15] LABS: #Lymphocytes 1.2 thou/uL (1.20-3.40); #Monocytes 0.4 thou/uL (0.11-0.59); #Neutrophils 10.9 thou/uL (1.40-6.50); %Basophils 0.2 % (0.0-1.0); %Eosinophils 0.2 % (0.0-10.0); %Lymphocytes 9.8 % (21.0-51.0); %Monocytes 3.3 % (0.0-10.0); %Neutrophils 86.5 % (42.0-75.0); Hemoglobin 12.1 g/dL (14.0-18.0); Mean Corpuscular HGB CONC 30.9 g/dL (32.0-36.0); Mean Corpuscular Hemoglobin 26.8 pg (27.0-31.0); Mean Corpuscular Volume 86.6 fL (78.0-98.0); Mean Platelet Volume 10.2 fL (7.4-10.4); Platelet Count 157 thou/uL (130-400); RBC Distribution Width 14.2 % (11.5-14.5); Red Blood Cell (RBC) Count 4.51 mill/uL (4.70-6.10); White Blood Cell (WBC) Count 12.6 thou/uL (4.8-10.8)
[2019-09-30] MEDS: Pantoprazole 40 MG VIAL IVP SCH (08:16)
--- NOTE | 2019-09-30 08:27 | PRG ---
DATE OF SERVICE: 09/30/2019 TIME SPENT: 35 minutes of critical care time. SUBJECTIVE: This patient remains intubated, on mechanical ventilation. He is currently in hypothermia. OBJECTIVE: VITAL SIGNS: Pulse 103, blood pressure 94/64, and O2 saturation 95%. He is currently on assist-control ventilation with a rate of 30, tidal volume 500, PEEP of 5, FiO2 of 70%. He is off all vasopressors. NEUROLOGIC: His pupils are 1 mm, poorly reactive. When allowed to come out of sedation, he has severe myoclonic jerking activity. LUNGS: Clear. CARDIAC: Rhythm looks paced. ABDOMEN: Obese, soft. EXTREMITIES: Trace edema throughout. LABORATORY DATA: ABG with a pH of 7.46, pCO2 of 24, pO2 of 62. Sodium 142, potassium 3.5, chloride 110, CO2 of 17, BUN 33, and creatinine 2.7. ASSESSMENT: 1. Status post prolonged cardiac arrest secondary to ventricular tachycardia. 2. Acute respiratory failure, requiring mechanical ventilation. 3. Indication of severe anoxic encephalopathy. PLAN: 1. I spoke to the patient's daughter on the phone and relayed an update to her. I emphasized that the patient's prognosis was quite poor. I am not sure she was ready to hear that. She was quite concerned about Paramedics on the scene yesterday. 2. The patient will begin rewarming this afternoon and we will re-evaluate his neurologic status at that time. In the meantime, continue current ventilatory support. Job ID: [id number]
[2019-09-30 08:44] LABS: Critical Call CKMB RESULT DECREASING; Critical Call Chem Troponin I RESULT DECREASING; Troponin I 0.548 ng/mL (< 0.028)
[2019-09-30 09:07] LABS: INR-International Normal Ratio 1.2; Prothrombin Time 15.6 sec (12.0-14.7)
[2019-09-30 09:08] LABS: PTT 33.2 sec (22.9-36.1)
[2019-09-30 09:12] LABS: Anion Gap 17 mmol/L (10-20); BUN (Urea Nitrogen) 32 mg/dL (8.4-25.7); Calc. Creatinine Clearance 52 mL/min (70-130); Calcium 8.1 mg/dL (7.8-10.44); Carbon Dioxide 18 mmol/L (23-31); Chloride 110 mmol/L (98-107); Estimated GFR-MDRD 29; Glucose 117 mg/dL (83-110); Phosphorus 4.3 mg/dL (2.3-4.7); Potassium 3.4 mmol/L (3.5-5.1); Sodium 142 mmol/L (136-145)
--- NOTE | 2019-09-30 12:39 | EKG ---
Test Reason : Blood Pressure : / mmHG Vent. Rate : 066 BPM Atrial Rate : 066 BPM P-R Int : 000 ms QRS Dur : 176 ms QT Int : 582 ms P-R-T Axes : 018 -77 060 degrees QTc Int : 610 ms Suspect unspecified pacemaker failure Ventricular-paced rhythm with frequent Premature ventricular complexes Abnormal ECG When compared with ECG of 29-SEP-2019 10:00, (Unconfirmed) Premature ventricular complexes are now Present Vent. rate has increased BY 18 BPM Confirmed by GAURANG MAC, DR. Wisdom ([id number]) on 09/30/2019 12:38:58 PM Referred By: DANISH Confirmed By:DR. Artis MERLOS MD
--- NOTE | 2019-09-30 12:41 | EKG ---
Test Reason : STAT Blood Pressure : / mmHG Vent. Rate : 107 BPM Atrial Rate : 107 BPM P-R Int : 000 ms QRS Dur : 236 ms QT Int : 482 ms P-R-T Axes : 000 -68 063 degrees QTc Int : 643 ms Suspect unspecified pacemaker failure Ventricular-paced rhythm with frequent AV dual-paced complexes Abnormal ECG When compared with ECG of 29-SEP-2019 15:00, (Unconfirmed) Premature ventricular complexes are no longer Present Vent. rate has increased BY 41 BPM Confirmed by GAURANG MAC, DR. Wisdom ([id number]) on 09/30/2019 12:41:13 PM Referred By: Confirmed By:DR. Artis MERLOS MD
--- NOTE | 2019-09-30 13:00 | PDOC.CPN ---
- Subjective Date: 09/30/19 Time: 12:56 Interval history: Remains intubated, unresponsive. - Review of Systems ROS unobtainable: due to endotracheal tube - Objective Allergies/Adverse Reactions: Allergies Allergy/AdvReac Type Severity Reaction Status Date / Time oxytetracycline Allergy Verified 02/15/13 19:23 [From Terramycin] oxytetracycline HCl Allergy Verified 02/15/13 19:23 [From Terramycin] Visit Medications: Current Medications Dextrose/Water (Dextrose 50%) 25 gm SLOW IVP PRN PRN PRN Reason: Hypoglycemia Enoxaparin Sodium (Lovenox) 40 mg SC 0900 KAMARI Last Admin: 09/30/19 08:14 Dose: 40 mg Glucagon (Glucagon) 1 mg IM PRN PRN PRN Reason: Hypoglycemia Dextrose/Water (D5w) 1,000 mls @ 0 mls/hr IV .Q0M PRN PRN Reason: Hypoglycemia Epinephrine 1 mg/ Dextrose/ (Water) 251 mls @ 0 mls/hr IVPB INF KAMARI; Protocol Norepinephrine Bitartrate (Levophed) 250 mls @ 0 mls/hr IVPB INF KAMARI; Protocol Sodium Chloride (Normal Saline 0.9%) 1,000 mls @ 75 mls/hr IV .[id number] KAMARI Last Admin: 09/30/19 06:29 Dose: 1,000 mls Fentanyl Citrate 2,000 mcg/ (Sodium Chloride) 100 mls @ 0 mls/hr IV INF KAMARI; Protocol Stop: 10/29/19 15:07 Fentanyl Citrate (Fentanyl Bolus) 250 mls @ 0 mls/hr IVPB PRN PRN PRN Reason: Breakthrough pain/agitation Stop: 10/29/19 15:07 Piperacillin Sod/Tazobactam (Sod 3.375 gm/ Sodium Chloride) 100 mls @ 200 mls/ hr IVPB Q6H KAMARI Last Admin: 09/30/19 10:00 Dose: 100 mls Levetiracetam 1,000 mg/ Device 100 mls @ 200 mls/hr IVPB 0400,1600 KAMARI Last Admin: 09/30/19 03:18 Dose: 100 mls Insulin Human Lispro (Humalog) 0 units SC .MODERATE SLIDING SC PRN PRN Reason: Moderate Correctional Scale Lorazepam (Ativan) 2 mg SLOW IVP Q1H PRN PRN Reason: Breakthrough agitation Stop: 10/29/19 15:07 Last Admin: 09/29/19 18:13 Dose: 2 mg Morphine Sulfate (Morphine Sulfate) 2 mg SLOW IVP Q1H PRN PRN Reason: Breakthrough Pain/Agitation Stop: 10/29/19 15:07 Discontinue Previous Narcotic Pain Medications And Benzodiazepines 1 each FS .ONE KAMARI Stop: 10/29/19 15:07 Pantoprazole Sodium (Protonix) 40 mg IVP DAILY KAMARI Last Admin: 09/30/19 08:16 Dose: 40 mg Propofol (Diprivan) 1,000 mg IV INF PRN; Protocol PRN Reason: TO ACHIEVE GOAL RASS Stop: 10/29/19 15:07 Last Admin: 09/30/19 08:48 Dose: 1,000 mg Propofol (Diprivan Bolus) 20 mg IV Q5MIN PRN PRN Reason: BREAKTHROUGH AGITATION Stop: 10/29/19 15:07 Vecuronium [place] (Norcuron) 10 mg IVP Q30MIN PRN PRN Reason: Agitation Last Admin: 09/30/19 07:05 Dose: 10 mg Vital Signs & Weight: Vital Signs Temp Pulse Resp BP 09/30/19 11:30 60 130/75 09/30/19 07:35 104 H 102/66 09/30/19 06:00 91.4 F L 30 H 09/30/19 05:00 91.4 F L 09/30/19 04:00 91.4 F L 30 H 09/30/19 03:00 91.8 F L 09/30/19 02:18 102 H 137/99 H 09/30/19 02:00 91.8 F L 30 H 09/30/19 01:00 90.9 F L 30 H Weight 320 lb 8.834 oz - Physical Exam General: other (Intubated, unresponsive.) HEENT: mucus membranes moist Neck: supple neck Cardiac: regular rate and rhythm Lungs: bibasilar rales Neuro: other (Unresponsive, picnosis.) Abdomen: active bowel sounds Extremities: 1+ LE edema Skin: clear Musculoskeletal: normal range of motion - Labs Result Diagrams: 09/30/19 07:56 09/30/19 07:56 Troponin/CKMB CK-MB (CK-2) 11.0 ng/mL (0-6.6) H* 09/30/19 07:56 Troponin I 0.548 ng/mL (< 0.028) H* 09/30/19 07:56 - Telemetry Sinus rhythms and dysrhythmias: sinus rhythm - Assessment/Plan Assessment/Plan: 1. VFib arrest 2. Severe dilated CM 3. Presence of an AICD 4. Non ischemic CM 5. Prolongued CPR 6. Likely severe anoxic brain injury PLAN: - Interrogation of device showed a 15 minute gap between AICD firing and next external cardioversion. - Device is normal functioning at this time. - Being rewarmed at this time. - Management will likely be dictated depending on level of neurological recovery. At this time it would seem his level of anoxic injury is severe and devastating. - Severely ill and would not be unexpected. - Will follow.
[2019-09-30 13:04] VITALS: BMI 42.3
--- NOTE | 2019-09-30 14:01 | PDOC.HOSPP ---
- Subjective Encounter Date: 09/30/19 Subjective: seen at bedside remains intubated unresponsive no following cmmands - Objective Vital Signs & Weight: Vital Signs (12 hours) Temp Pulse Resp BP 09/30/19 11:30 60 130/75 09/30/19 07:35 104 H 102/66 09/30/19 06:00 91.4 F L 30 H 09/30/19 05:00 91.4 F L 09/30/19 04:00 91.4 F L 30 H 09/30/19 03:00 91.8 F L 09/30/19 02:18 102 H 137/99 H 09/30/19 02:00 91.8 F L 30 H Weight Admit Weight 321 lb 10.471 oz Weight 320 lb 8.832 oz Most Recent Monitor Data Heart Rate from ECG 60 NIBP 128/70 NIBP BP-Mean 89 Respiration from ECG 30 SpO2 93 I&O: 09/29/19 09/30/19 10/01/19 06:59 06:59 06:59 Intake Total 1776 Output Total 2625 Balance -849 Result Diagrams: 09/30/19 07:56 09/30/19 07:56 Additional Labs: Accuchecks 09/30/19 09/30/19 09/29/19 06:18 00:16 18:55 POC Glucose 111 H 123 H 127 H Hospitalist ROS - Medication Medications: Active Medications Generic Name Dose Route Start Last Admin Trade Name Freq PRN Reason Stop Dose Admin Enoxaparin Sodium 40 mg 09/30/19 09:00 09/30/19 08:14 Lovenox SC 40 mg 0900 KAMARI Administration Sodium Chloride 1,000 mls @ 75 mls/hr 09/29/19 15:00 09/30/19 06:29 Normal Saline 0.9% IV 1,000 mls .[id number] KAMARI Administration Piperacillin Sod/Tazobactam 100 mls @ 200 mls/hr 09/29/19 16:00 09/30/19 10: 00 Sod 3.375 gm/ Sodium Chloride IVPB 100 mls Q6H KAMARI Administration Levetiracetam 1,000 mg/ Device 100 mls @ 200 mls/hr 09/30/19 04:00 09/30/19 03:18 IVPB 100 mls 0400,1600 KAMARI Administration Lorazepam 2 mg 09/29/19 15:07 09/29/19 18:13 Ativan SLOW IVP 10/29/19 15:07 2 mg Q1H PRN Administration Breakthrough agitation Pantoprazole Sodium 40 mg 09/30/19 09:00 09/30/19 08:16 Protonix IVP 40 mg DAILY KAMARI Administration Propofol 1,000 mg 09/29/19 15:07 09/30/19 08:48 Diprivan IV 10/29/19 15:07 1,000 mg INF PRN Administration TO ACHIEVE GOAL RASS Protocol Vecuronium [place] 10 mg 09/29/19 14:43 09/30/19 07:05 Norcuron IVP 10 mg Q30MIN PRN Administration Agitation - Exam General Appearance: ill appearing General - other findings: intubated Neck: supple Heart: RRR Respiratory: CTAB Gastrointestinal: soft Psychiatric: lethargic Hosp A/P (1) Cardiac arrest Code(s): I46.9 - CARDIAC ARREST, CAUSE UNSPECIFIED Status: Acute (2) Acute respiratory disease Code(s): J06.9 - ACUTE UPPER RESPIRATORY INFECTION, UNSPECIFIED Status: Acute (3) Cardiomyopathy Code(s): I42.9 - CARDIOMYOPATHY, UNSPECIFIED Status: Active (4) Chronic obstructive lung disease Code(s): J44.9 - CHRONIC OBSTRUCTIVE PULMONARY DISEASE, UNSPECIFIED Status: Active (5) Diabetes mellitus type 2 Code(s): E11.9 - TYPE 2 DIABETES MELLITUS WITHOUT COMPLICATIONS Status: Active - Plan Patient most likely rest due to arrhythmia given his low EF of 15%, vfibb arrest with prolong cpr Mechanical ventilation and vent management as per CCU theraputic hypothermia as per cc rewarming today Continue with Levophed and epinephrine Follow further cardiology recommendations , Device is normal functioning at this time. Management will likely be dictated depending on level of neurological recovery Continue with supportive care Monitor electrolytes and replace as needed DVT prophylaxis with Lovenox GI prophylaxis Patient is full code for now talked to daughter over phone and expressed the very poor prognosis she wants to moniotr for now
[2019-09-30 14:19] LABS: #Eosinphils 0.1 thou/uL (0.0-0.7); #Lymphocytes 1.2 thou/uL (1.20-3.40); #Monocytes 0.6 thou/uL (0.11-0.59); #Neutrophils 9.7 thou/uL (1.40-6.50); %Basophils 0.4 % (0.0-1.0); %Eosinophils 0.5 % (0.0-10.0); %Monocytes 5.3 % (0.0-10.0); %Neutrophils 83.9 % (42.0-75.0); Hemoglobin 11.6 g/dL (14.0-18.0); Mean Corpuscular HGB CONC 31.9 g/dL (32.0-36.0); Mean Corpuscular Hemoglobin 27.2 pg (27.0-31.0); Mean Corpuscular Volume 85.5 fL (78.0-98.0); Mean Platelet Volume 10.9 fL (7.4-10.4); Platelet Count 151 thou/uL (130-400); RBC Distribution Width 14.4 % (11.5-14.5); Red Blood Cell (RBC) Count 4.27 mill/uL (4.70-6.10); White Blood Cell (WBC) Count 11.6 thou/uL (4.8-10.8)
[2019-09-30 14:26] LABS: INR-International Normal Ratio 1.2; PTT 33.3 sec (22.9-36.1); Prothrombin Time 15.6 sec (12.0-14.7)
[2019-09-30 14:40] LABS: Anion Gap 16 mmol/L (10-20); BUN (Urea Nitrogen) 36 mg/dL (8.4-25.7); Calc. Creatinine Clearance 51 mL/min (70-130); Calcium 7.6 mg/dL (7.8-10.44); Carbon Dioxide 18 mmol/L (23-31); Chloride 112 mmol/L (98-107); Estimated GFR-MDRD 28; Glucose 77 mg/dL (83-110); Magnesium 2.9 mg/dL (1.6-2.6); Phosphorus 4.2 mg/dL (2.3-4.7); Potassium 3.1 mmol/L (3.5-5.1); Sodium 143 mmol/L (136-145)
[2019-09-30 14:47] LABS: CKMB 9.8 ng/mL (0-6.6); Critical Call CKMB RESULT DECREASING
[2019-09-30] MEDS ORDERED: Potassium Chloride 40 MEQ in Sodium Chloride 0.9% 250 ML 250 ML IVPB SCH (17:30)
[2019-09-30 18:41] LABS: Anion Gap 16 mmol/L (10-20); BUN (Urea Nitrogen) 38 mg/dL (8.4-25.7); Calc. Creatinine Clearance 46 mL/min (70-130); Calcium 7.9 mg/dL (7.8-10.44); Carbon Dioxide 20 mmol/L (23-31); Chloride 109 mmol/L (98-107); Estimated GFR-MDRD 25; Glucose 66 mg/dL (83-110); Potassium 3.3 mmol/L (3.5-5.1); Sodium 142 mmol/L (136-145)
[2019-09-30] MEDS: Dextrose 5 %-0.45 % NaCl 1,000 ML IV SCH (19:40)
[2019-09-30 23:22] LABS: Anion Gap 18 mmol/L (10-20); BUN (Urea Nitrogen) 40 mg/dL (8.4-25.7); Calc. Creatinine Clearance 42 mL/min (70-130); Carbon Dioxide 20 mmol/L (23-31); Chloride 111 mmol/L (98-107); Estimated GFR-MDRD 22; Glucose 78 mg/dL (83-110); Potassium 3.5 mmol/L (3.5-5.1); Sodium 145 mmol/L (136-145)
[2019-10-01] MEDS ORDERED: Furosemide 40 MG/4 ML VIAL SLOW IVP SCH (00:15)
[2019-10-01] MEDS: Acetaminophen 650 MG Suppository PR PRN (00:44)
[2019-10-01] MEDS: Propofol 1,000 MG/100 ML VIAL IV PRN ×6 (02:03→23:34)
[2019-10-01] MEDS: Lorazepam 2 MG/ML VIAL SLOW IVP PRN ×8 (02:51→22:44)
[2019-10-01] MEDS: levETIRAcetam In NaCl (Iso-Os) 1,000 MG in Premix Bag 1 BAG IVPB SCH ×2 (03:13→15:29)
[2019-10-01 03:58] LABS: #Eosinphils 0.1 thou/uL (0.0-0.7); #Lymphocytes 0.9 thou/uL (1.20-3.40); #Monocytes 0.7 thou/uL (0.11-0.59); #Neutrophils 11.9 thou/uL (1.40-6.50); %Basophils 0.3 % (0.0-1.0); %Eosinophils 0.6 % (0.0-10.0); %Lymphocytes 6.8 % (21.0-51.0); %Monocytes 4.8 % (0.0-10.0); %Neutrophils 87.4 % (42.0-75.0); Hemoglobin 11.8 g/dL (14.0-18.0); Mean Corpuscular Hemoglobin 27.5 pg (27.0-31.0); Mean Corpuscular Volume 85.9 fL (78.0-98.0); Mean Platelet Volume 10.8 fL (7.4-10.4); Platelet Count 158 thou/uL (130-400); RBC Distribution Width 14.3 % (11.5-14.5); Red Blood Cell (RBC) Count 4.29 mill/uL (4.70-6.10); White Blood Cell (WBC) Count 13.6 thou/uL (4.8-10.8)
[2019-10-01 04:13] LABS: Anion Gap 16 mmol/L (10-20); BUN (Urea Nitrogen) 44 mg/dL (8.4-25.7); Calc. Creatinine Clearance 38 mL/min (70-130); Calcium 7.6 mg/dL (7.8-10.44); Carbon Dioxide 19 mmol/L (23-31); Chloride 110 mmol/L (98-107); Estimated GFR-MDRD 20; Glucose 123 mg/dL (83-110); Potassium 3.4 mmol/L (3.5-5.1); Sodium 142 mmol/L (136-145)
[2019-10-01] MEDS: Piperacillin/Tazobactam 3.375 GM in Sodium Chloride 0.9% 100 ML IVPB SCH ×2 (04:25→10:31)
[2019-10-01] MEDS ORDERED: Norepinephrine 8 MG/0.9% NS 250 ML IVPB SCH (04:37)
[2019-10-01 07:20] LABS: Actual Bicarbonate (HCO3a) 16.3 mEq/L (22-28); Base Excess (BEa) -6.1 mEq/L (-2.0 to +3.0); Calcium, Ionized (arterial) 1.07 mmol/L (1.12-1.30); Carboxyhemoglobin (COHb) 0.3 gm% (0.0-3.0); Hemoglobin (Hb) 11.8 g/dL (14.0-18.0); O2 Tension (PaO2), arterial 73.6 mmHg (> 70.0); Potassium - ABG Lab 3.36 mmol/L (3.70-5.30); pH, Arterial 7.45 (7.35-7.45)
[2019-10-01 07:22] LABS: ALV-art Gradient 395.375 (0-20); CO2 Tension 24.1 mmHg (35.0-45.0); Puncture Site LRA
--- NOTE | 2019-10-01 08:15 | RAD ---
EXAM: CHEST ONE VIEW HISTORY: Decreased oxygen saturation, possible pulmonary edema. COMPARISON: 09/30/2019 FINDINGS: Endotracheal tube and nasogastric tubes remain in place. A right subclavian AICD device is noted in p lace with left subclavian leads from prior AICD device also again noted in place. Pleural and parenchymal changes are again seen at the left lung base, and findings could be related to left pleur al effusion and volume loss. However, partial collapse of the left lower lobe or consolidation left lower lobe is a possibility. Increased perihilar interstitial opacities are seen. Right lung is other monge well expanded. No other interval change. IMPRESSION: 1. Increased density left lung base. Findings could be related to partial collapse left lower lobe an d associated left pleural effusion. However, pneumonia at the left lung base is a possibility with associated pleural fluid. 2. Right perihilar interstitial opacities which could be on the basis of pulmonary edema.
[2019-10-01] MEDS: Dextrose 5 %-0.45 % NaCl 1,000 ML IV SCH ×2 (09:10→22:25)
[2019-10-01] MEDS: Enoxaparin Sodium 40 MG/0.4 ML SYRINGE SC SCH (09:11)
[2019-10-01] MEDS: Pantoprazole 40 MG VIAL IVP SCH (09:11)
--- NOTE | 2019-10-01 09:15 | RAD ---
PORTABLE CHEST: Date: 10/01/2019 HISTORY: Pneumonia. COMPARISON: 09/30/2019 exam. FINDINGS: Endotracheal and NG tubes are in satisfactory position. Parenchymal lung changes appear similar to th e prior exam. No new process. IMPRESSION: Stable exam. POS: GALDINO
--- NOTE | 2019-10-01 09:19 | PRG ---
DATE OF SERVICE: 10/01/2019 35 minutes of critical care time. SUBJECTIVE: The patient remains intubated in the ICU. He has now been rewarmed to about 97 degrees after undergoing hypothermic protocol. OBJECTIVE: VITAL SIGNS: His temperature is currently 97, pulse 67, blood pressure 109/63. NEUROLOGIC: He has myoclonic jerking intermittently throughout. HEENT: His pupils are 1 mm, nonreactive to light. He does not have a gag reflex. He does not have spontaneous respirations that I see. HEENT: Otherwise, unremarkable except for the tubes in place. NECK: No JVD. LUNGS: Clear anteriorly. CARDIOVASCULAR: S1 and S2. Regular. ABDOMEN: Soft and obese. EXTREMITIES: No edema. LABORATORY DATA: White blood cell count 13.6, hematocrit 36.9, and platelet count 158. INR 1.2. A pH of 7.45, pCO2 of 24, pO2 of 73. Sodium 142, potassium 3.4, chloride 110, CO2 of 19, BUN 44, creatinine 3.6, and glucose 123. X-ray shows no acute changes. ASSESSMENT: 1. Status post cardiac arrest secondary to ventricular tachycardia. 2. Acute respiratory failure, requiring mechanical ventilation. 3. Anoxic encephalopathy with myoclonic jerking. PLAN: 1. I will have Neurology to evaluate the patient, now the patient is warm. I think the patient has basically suffered a severe and irreversible brain injury. I have a feeling the EEG will show burst suppression activity. 2. Continue supportive care otherwise. I will adjust the ventilator settings. Job ID: [id number]
[2019-10-01] MEDS: Piperacillin/Tazobactam 2.25 GM in Sodium Chloride 0.9% 100 ML IVPB SCH ×3 (10:34→23:34)
--- NOTE | 2019-10-01 12:34 | PDOC.HOSPP ---
- Subjective Encounter Date: 10/08/19 Subjective: Patient seen exam bedside this morning completed warming phase intubated not following commands or answer questions undergoing EEG monitoring continued to have jerking movement - Objective Vital Signs & Weight: Vital Signs (12 hours) Temp Pulse Resp BP Pulse Ox 10/01/19 11:03 65 124/75 10/01/19 10:00 24 H 10/01/19 08:00 30 H 93 L 10/01/19 06:51 64 117/70 10/01/19 06:00 30 H 10/01/19 05:00 97.2 F L 10/01/19 04:00 98.4 F 30 H 10/01/19 03:00 99.0 F 10/01/19 02:27 82 138/119 H 10/01/19 02:00 30 H Weight Admit Weight 321 lb 10.471 oz Weight 5.178 oz Most Recent Monitor Data Heart Rate from ECG 67 NIBP 124/75 NIBP BP-Mean 91 Respiration from ECG 24 SpO2 100 I&O: 09/30/19 10/01/19 10/02/19 06:59 06:59 06:59 Intake Total 1776 2850.3 Output Total 2625 478 105 Balance -849 2372.3 -105 Result Diagrams: 10/01/19 03:18 10/01/19 03:18 Additional Labs: Accuchecks 10/01/19 10/01/19 09/30/19 10:44 03:22 22:12 POC Glucose 95 85 98 Hospitalist ROS - Medication Medications: Active Medications Generic Name Dose Route Start Last Admin Trade Name Freq PRN Reason Stop Dose Admin Acetaminophen 650 mg 10/01/19 00:02 10/01/19 00:44 Tylenol [place] 650 mg Q4H PRN Administration Headache/Fever or Pain Levetiracetam 1,000 mg/ Device 100 mls @ 200 mls/hr 09/30/19 04:00 10/01/19 03:13 IVPB 100 mls 0400,1600 KAMARI Administration Dextrose/Sodium Chloride 1,000 mls @ 75 mls/hr 09/30/19 19:45 10/01/19 09:10 D5 1/2 Ns IV 1,000 mls .[id number] KAMARI Administration Piperacillin Sod/Tazobactam 100 mls @ 200 mls/hr 10/01/19 12:00 10/01/19 10: 34 Sod 2.25 gm/ Sodium Chloride IVPB Not Given Q6HR KAMARI Lorazepam 2 mg 10/01/19 03:15 10/01/19 05:53 Ativan SLOW IVP 10/31/19 03:16 2 mg Q30MIN PRN Administration Breakthrough agitation Pantoprazole Sodium 40 mg 09/30/19 09:00 10/01/19 09:11 Protonix IVP 40 mg DAILY KAMARI Administration Propofol 1,000 mg 09/29/19 15:07 10/01/19 10:30 Diprivan IV 10/29/19 15:07 1,000 mg INF PRN Administration TO ACHIEVE GOAL RASS Protocol - Exam General Appearance: ill appearing Heart: RRR Gastrointestinal: soft Extremities: no cyanosis Neurological - other findings: Muscle spasm and jerking Hosp A/P (1) Cardiac arrest Code(s): I46.9 - CARDIAC ARREST, CAUSE UNSPECIFIED Status: Acute (2) Acute respiratory disease Code(s): J06.9 - ACUTE UPPER RESPIRATORY INFECTION, UNSPECIFIED Status: Acute (3) Cardiomyopathy Code(s): I42.9 - CARDIOMYOPATHY, UNSPECIFIED Status: Active (4) Chronic obstructive lung disease Code(s): J44.9 - CHRONIC OBSTRUCTIVE PULMONARY DISEASE, UNSPECIFIED Status: Active (5) Diabetes mellitus type 2 Code(s): E11.9 - TYPE 2 DIABETES MELLITUS WITHOUT COMPLICATIONS Status: Active - Plan Patient most likely rest due to arrhythmia given his low EF of 15%, vfibb arrest with prolong cpr Mechanical ventilation and vent management as per CCU theraputic hypothermia completed Patient with no significant improvement mental status and hospital stay possible brain injury due to prolonged CPR neurology consulted patient undergoing EEG to assess for brain . palliative care meeting with the family today to discuss palliative care and hospice and possible withdrawal of care Follow further cardiology recommendations Continue with supportive care Monitor electrolytes and replace as needed DVT prophylaxis with Lovenox GI prophylaxis Family will meet with palliative care to decide regarding terminal extubation and
--- NOTE | 2019-10-01 13:08 | CON ---
DATE OF CONSULTATION: 10/01/2019 REASON FOR CONSULTATION: Myoclonic jerks/anoxic brain injury. HISTORY OF PRESENT ILLNESS: A 69-year-old male with medical history significant for cardiomyopathy with ejection fraction 15%. He is also status post AICD, was brought by EMS after an episode of shortness of breath on 09/29/2019. The patient arrived in the emergency room and became extremely lethargic and pulseless, so CPR was done, and he went into ventricular fibrillation and ventricular tachycardia. CPR was initiated, and then he was intubated to protect his airway and was started on Levophed and epinephrine drip and was transferred to the ICU where the hypothermia protocol was initiated. The patient remains intubated in the ICU. He was rewarmed to 97 degrees after undergoing hypothermia protocol, but he developed myoclonic jerks, and Neurology was asked to comment on the prognosis. REVIEW OF SYSTEMS: Unobtainable due to the patient's mental status. PAST MEDICAL HISTORY: COPD, severe cardiomyopathy with ejection fraction of 15% , hypertension, type 2 diabetes, pulmonary hypertension, chronic left bundle branch block, morbid obesity. PAST SURGICAL HISTORY: Status post AICD placement. ALLERGIES: NO KNOWN DRUG ALLERGIES. SOCIAL HISTORY: There is no record of alcohol abuse, tobacco, or illegal drug abuse. FAMILY HISTORY: Significant for heart block and diabetes. MEDICATIONS: Aspirin 81 mg daily, Coreg 25 mg p.o. b.i.d., lisinopril 5 mg p.o. at bedtime, potassium chloride 20 mEq p.o. at bedtime, Pravachol 20 mg daily, Ventolin HFA inhaler 2 puffs q.4 hours p.r.n., glipizide 5 mg daily, metformin 1000 mg p.o. b.i.d., Tylenol 650 mg q.4 hours p.r.n., Duricef 500 mg p.o. b.i.d., furosemide 40 mg p.o. b.i.d. Vital Signs & Weight: Vital Signs (12 hours) Temp Pulse Resp BP Pulse Ox 10/01/19 11:03 65 124/75 10/01/19 10:00 24 H 10/01/19 08:00 30 H 93 L 10/01/19 06:51 64 117/70 10/01/19 06:00 30 H 10/01/19 05:00 97.2 F L 10/01/19 04:00 98.4 F 30 H 10/01/19 03:00 99.0 F 10/01/19 02:27 82 138/119 H 10/01/19 02:00 30 H Weight Admit Weight 321 lb 10.471 oz Weight 5.178 oz Most Recent Monitor Data Heart Rate from ECG 67 NIBP 124/75 NIBP BP-Mean 91 Respiration from ECG 24 SpO2 100 I&O: 09/30/19 10/01/19 10/02/19 06:59 06:59 06:59 Intake Total 1776 2850.3 Output Total 2625 478 105 Balance -849 2372.3 -105 Additional Labs: Accuchecks 10/01/19 10/01/19 09/30/19 10:44 03:22 22:12 POC Glucose 95 85 98 H Active Medications Generic Name Dose Route Start Last Admin Trade Name Freq PRN Reason Stop Dose Admin Acetaminophen 650 mg 10/01/19 00:02 10/01/19 00:44 Tylenol [place] 650 mg Q4H PRN Administration Headache/Fever or Pain Levetiracetam 1,000 mg/ Device 100 mls @ 200 mls/hr 09/30/19 04:00 10/01/19 03:13 IVPB 100 mls 0400,1600 KAMARI Administration Dextrose/Sodium Chloride 1,000 mls @ 75 mls/hr 09/30/19 19:45 10/01/19 09:10 D5 1/2 Ns IV 1,000 mls .[id number] KAMARI Administration Piperacillin Sod/Tazobactam 100 mls @ 200 mls/hr 10/01/19 12:00 10/01/19 10: 34 Sod 2.25 gm/ Sodium Chloride IVPB Not Given Q6HR KAMARI Lorazepam 2 mg 10/01/19 03:15 10/01/19 05:53 Ativan SLOW IVP 10/31/19 03:16 2 mg Q30MIN PRN Administration Breakthrough agitation Pantoprazole Sodium 40 mg 09/30/19 09:00 10/01/19 09:11 Protonix IVP 40 mg DAILY KAMARI Administration Propofol 1,000 mg 09/29/19 15:07 10/01/19 10:30 Diprivan IV 10/29/19 15:07 1,000 mg INF PRN Administration TO ACHIEVE GOAL RASS Protocol PHYSICAL EXAMINATION: GENERAL: The patient is intubated and sedated. CVS: Regular rate and rhythm. CHEST: Clear. ABDOMEN: Soft. NEUROLOGICAL: Mental status; the patient is sedated and intubated. He does not follow commands. He does not maintain eye contact. No spontaneous movements. The patient has myoclonic jerks seen in both upper and lower extremities. Cranial nerves; pupils 4 mm, round, and sluggishly responsive to light. Cornea positive. No gaze preference. Tongue midline. Face symmetric. Motor; muscle tone and bulk are normal. Myoclonic jerks seen in both upper and lower extremities. Sensory, withdraws, minimal withdrawal of all 4 extremities to nailbed pressure. Reflexes deferred and cerebellar could not be assessed secondary to the patient's mental status and sedation. Gait deferred due to the patient's safety reasons and the patient's mental status. DATA REVIEWED: I reviewed the EEG, which was consistent with burst suppression pattern in the EEG even after the propofol was discontinued which has poor prognosis. Myoclonic jerks are associated with spike and wave discharges, so they are epileptic in nature. 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 Earlier, initial head CT did not reveal any acute intracranial pathology. ASSESSMENT AND PLAN: (1) Cardiac arrest Code(s): I46.9 - CARDIAC ARREST, CAUSE UNSPECIFIED Status: Acute (2) Acute respiratory disease Code(s): J06.9 - ACUTE UPPER RESPIRATORY INFECTION, UNSPECIFIED Status: Acute (3) Cardiomyopathy Code(s): I42.9 - CARDIOMYOPATHY, UNSPECIFIED Status: Active (4) Chronic obstructive lung disease Code(s): J44.9 - CHRONIC OBSTRUCTIVE PULMONARY DISEASE, UNSPECIFIED Status: Active (5) Diabetes mellitus type 2 Code(s): E11.9 - TYPE 2 DIABETES MELLITUS WITHOUT COMPLICATIONS Status: Active Mr. Sandro Polk is consulted for altered mental status and myoclonic jerks. He is status post cardiac arrest and history of arrhythmia with severe cardiomyopathy. 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 Results were communicated with the primary attending , Dr. Lao. The chances of meaningful function and meaningful recovery seem grave at this point. Continue medical management per primary team. Consider head CT when stable. Consider loading with 2 grams IV Keppra and then 1500 mg IV q12 if family does not want to move forward with withdrawal of care. Observe seizure precautions. Plan discussed in detail with the primary attending, Dr. Lao, and the nursing staff. Thank you for the consult. Job ID: [id number] MTDD
--- NOTE | 2019-10-01 13:27 | PDOC.FMACP ---
Advance Care Planning - Problem (1) Palliative care encounter Status: Acute Code(s): Z51.5 - ENCOUNTER FOR PALLIATIVE CARE (2) Acute respiratory disease Status: Acute Code(s): J06.9 - ACUTE UPPER RESPIRATORY INFECTION, UNSPECIFIED (3) Cardiac arrest Status: Acute Code(s): I46.9 - CARDIAC ARREST, CAUSE UNSPECIFIED (4) Cardiomyopathy Status: Active Code(s): I42.9 - CARDIOMYOPATHY, UNSPECIFIED (5) Chronic obstructive lung disease Status: Active Code(s): J44.9 - CHRONIC OBSTRUCTIVE PULMONARY DISEASE, UNSPECIFIED (6) Diabetes mellitus type 2 Status: Active Code(s): E11.9 - TYPE 2 DIABETES MELLITUS WITHOUT COMPLICATIONS (7) Pulmonary hypertension Status: Active Code(s): I27.2 - OTHER SECONDARY PULMONARY HYPERTENSION * DO NOT USE * - Note Participants: family, surrogate decision-maker, palliative care Summary: Palliative care discussed Advanced Care Planning, family was allowed an opportunity to decline. The diagnosis, prognosis and goals of care were discussed. Appropriate forms and documentation to accomplish the goals of care were discussed. All questions were answered. Patient Anjana Greenberg has elected to designate Jael Greenberg one of the patients daughters as surrogate decision maker. Discussed consideration of resuscitation status, and to discuss if Mr Greenberg had discussed his wishes in relation to what he would desire for healthcare measures if he was not able to verbalize his wishes. Family is currently electing to remain with full resuscitation measures. The Palliative Care Team will be engaged to assist with completion of any outstanding forms that are identified. Surrogate decision maker: Jael Greenberg as designated by patient Anjana Greenberg Time Spent (mins): 20
--- NOTE | 2019-10-01 13:41 | PDOC.PALPN ---
Palliative Progress Note - Subjective Intubated, known history of cardiomyopathy with EF of 15%. S/P CPR. - Objective Vital Signs: Vital Signs - Most Recent Temp Pulse Resp BP Pulse Ox 97.2 F L 65 24 H 124/75 93 L 10/01/19 05:00 10/01/19 11:03 10/01/19 12:00 10/01/19 11:03 10/01/19 08:00 - Physical Exam Constitutional: encephalitic, ill appearing HEENT: moist MMs Deviation from normal: Mechanical ventilation Cardiovascular: RRR Gastrointestinal: soft, non-tender Genitourinary: brown catheter Musculoskeletal: diffuse muscle atrophy Deviation from normal: jerking movements Skin: no rash Deviation from normal: encephalopathic - Assessment (1) Palliative care encounter Code(s): Z51.5 - ENCOUNTER FOR PALLIATIVE CARE Status: Acute (2) Acute respiratory disease Code(s): J06.9 - ACUTE UPPER RESPIRATORY INFECTION, UNSPECIFIED Status: Acute (3) Cardiac arrest Code(s): I46.9 - CARDIAC ARREST, CAUSE UNSPECIFIED Status: Acute (4) Cardiomyopathy Code(s): I42.9 - CARDIOMYOPATHY, UNSPECIFIED Status: Active (5) Chronic obstructive lung disease Code(s): J44.9 - CHRONIC OBSTRUCTIVE PULMONARY DISEASE, UNSPECIFIED Status: Active (6) Diabetes mellitus type 2 Code(s): E11.9 - TYPE 2 DIABETES MELLITUS WITHOUT COMPLICATIONS Status: Active (7) Pulmonary hypertension Code(s): I27.2 - OTHER SECONDARY PULMONARY HYPERTENSION * DO NOT USE * Status : Active - Plan Plan: Lengthy conversation with family ( and two daughters) at bedside. Discussed effects of s/p CPR and meaningful recovery. Family provided short life review. They will visit with the other family members, however state that if there is no meaningful recovery that he would not desire to live. Emotional Support and Therapeutic listening. Spiritual care Communicated with Hospitalist, Neuro and Pulmonary [35] minutes spent on this encounter with >50% of the time in counseling and coordination of care. - ROS Non Response: due to endotracheal tube, due to mental status
--- NOTE | 2019-10-01 14:40 | PRG ---
DATE OF SERVICE: 10/01/2019 SUBJECTIVE: Mr. Polk remains intubated and ventilated, unresponsive with involuntary jerking. OBJECTIVE: VITAL SIGNS: Blood pressure 90/60, pulse 64. LUNGS: Some rhonchi. No wheezing. CARDIAC: No new murmur, rub, or gallop. ABDOMEN: Soft, nontender. EXTREMITIES: Mild to moderate edema. ASSESSMENT: 1. Status post cardiac arrest. 2. History of nonischemic cardiomyopathy. PLAN: Continue supportive care therapy at the present time. Dr. John will be seeing the patient this weekend. Job ID: [id number] MTDD
[2019-10-02] MEDS: Acetaminophen 650 MG Suppository PR PRN ×2 (01:31→07:32)
[2019-10-02] MEDS: Lorazepam 2 MG/ML VIAL SLOW IVP PRN ×2 (03:03→07:32)
[2019-10-02] MEDS: Propofol 1,000 MG/100 ML VIAL IV PRN ×3 (03:21→10:10)
[2019-10-02] MEDS: levETIRAcetam In NaCl (Iso-Os) 1,000 MG in Premix Bag 1 BAG IVPB SCH (03:21)
[2019-10-02 03:38] LABS: #Basophils 0.1 thou/uL (0.0-0.2); #Eosinphils 0.4 thou/uL (0.0-0.7); #Lymphocytes 1.6 thou/uL (1.20-3.40); #Monocytes 0.9 thou/uL (0.11-0.59); %Basophils 0.7 % (0.0-1.0); %Lymphocytes 13.2 % (21.0-51.0); %Monocytes 7.3 % (0.0-10.0); %Neutrophils 75.8 % (42.0-75.0); Hemoglobin 10.6 g/dL (14.0-18.0); Mean Corpuscular HGB CONC 32.3 g/dL (32.0-36.0); Mean Corpuscular Hemoglobin 27.3 pg (27.0-31.0); Mean Corpuscular Volume 84.6 fL (78.0-98.0); Mean Platelet Volume 11.2 fL (7.4-10.4); Platelet Count 151 thou/uL (130-400); RBC Distribution Width 14.4 % (11.5-14.5); Red Blood Cell (RBC) Count 3.89 mill/uL (4.70-6.10); White Blood Cell (WBC) Count 11.9 thou/uL (4.8-10.8)
[2019-10-02 03:58] LABS: Anion Gap 18 mmol/L (10-20); BUN (Urea Nitrogen) 52 mg/dL (8.4-25.7); Calc. Creatinine Clearance 0 mL/min (70-130); Calcium 7.3 mg/dL (7.8-10.44); Carbon Dioxide 20 mmol/L (23-31); Chloride 110 mmol/L (98-107); Estimated GFR-MDRD 14; Glucose 93 mg/dL (83-110); Potassium 3.6 mmol/L (3.5-5.1); Sodium 144 mmol/L (136-145)
[2019-10-02 04:06] VITALS: TEMP 100.1
[2019-10-02] MEDS: Piperacillin/Tazobactam 2.25 GM in Sodium Chloride 0.9% 100 ML IVPB SCH (05:39)
[2019-10-02 07:11] LABS: Actual Bicarbonate (HCO3a) 17.5 mEq/L (22-28); Base Excess (BEa) -6.6 mEq/L (-2.0 to +3.0); Calcium, Ionized (arterial) 1.09 mmol/L (1.12-1.30); Carboxyhemoglobin (COHb) 0.5 gm% (0.0-3.0); Hemoglobin (Hb) 13.2 g/dL (14.0-18.0); O2 Tension (PaO2), arterial 130.9 mmHg (> 70.0); Potassium - ABG Lab 3.48 mmol/L (3.70-5.30); pH, Arterial 7.37 (7.35-7.45)
[2019-10-02] MEDS: Pantoprazole 40 MG VIAL IVP SCH (07:31)
[2019-10-02 08:57] LABS: Puncture Site RB
[2019-10-02] MEDS ORDERED: Enoxaparin Sodium 30 MG/0.3 ML SYRINGE SC SCH (09:00)
--- NOTE | 2019-10-02 09:01 | RAD ---
RADIOGRAPH CHEST 1 VIEW: DATE: 10/02/2019 TIME: 4:45 AM HISTORY: 69-year-old male with pneumonia COMPARISON: 10/01/2019 5:23 AM FINDINGS: New or worse consolidation at right lower lobe lung base, causing new finding of complete silhouettin g of right hemidiaphragm. Left lower lobe consolidation remains. Pulmonary venous congestion noted and upper lung zones with interstitial changes remain. Multiple AICD bilateral subclavian leads, including abandoned leads. Endotracheal tube and esophagogastric tube remain. Probable bilateral pleural effusions. IMPRESSION: 1) new consolidation at right lower lobe base. 2) no interval change in left lower lobe consolidation. 3) probable congestive heart failure.
--- NOTE | 2019-10-02 09:18 | PRG ---
DATE OF SERVICE: 10/02/2019 TIME: 30 minutes of critical care time. SUBJECTIVE: The patient remains intubated on mechanical ventilation. There has been no changes in neurologic status. He is still having myoclonic jerking. OBJECTIVE: VITAL SIGNS: Temperature 99.5, pulse 75, pressure 109/76, 24-hour intake 2689, output 775. HEENT: Remarkable for twitching around his lip. NECK: No JVD. LUNGS: Coarse breath sounds. CARDIAC: S1, S2. Regular. ABDOMEN: Soft. EXTREMITIES: No edema. LABORATORY DATA: White blood cell count 11.9, hematocrit 32.9, platelet count 151, pH 7.37, pCO2 31, PO2 130, on assist control, rate 24, tidal volume 500, PEEP 5, FiO2 of 70%. Sodium 144, potassium 3.6, chloride 110, CO2 of 20, BUN 52, creatinine 5.0, glucose 93. ASSESSMENT: 1. Status post prolonged cardiopulmonary arrest with severe anoxic brain injury. 2. Increasing creatinine. RECOMMENDATIONS: I tried to talk to family about the situation yesterday, but they ran off before we could have any kind of discussion with them. The patient basically has no hope for functional recovery and I think he should be extubated and be treated palliatively. Job ID: [id number]
--- NOTE | 2019-10-02 10:41 | PDOC.HOSPP ---
- Subjective Encounter Date: 10/02/19 non-verbal Subjective: Patient seen and examined bedside this morning orally intubated not following commands still having the jerking movements - Objective Vital Signs & Weight: Vital Signs (12 hours) Temp Pulse Resp BP Pulse Ox 10/02/19 10:05 71 115/78 10/02/19 10:00 24 H 10/02/19 08:00 24 H 100 10/02/19 06:40 72 110/62 10/02/19 06:00 24 H 10/02/19 04:00 100.1 F H 24 H 10/02/19 02:52 81 128/73 10/02/19 02:00 24 H 10/02/19 01:00 101.1 F H 10/02/19 00:00 24 H Weight Admit Weight 321 lb 10.471 oz Weight 330 lb 0.512 oz Most Recent Monitor Data Heart Rate from ECG 70 NIBP 115/78 NIBP BP-Mean 90 Respiration from ECG 24 SpO2 100 I&O: 10/01/19 10/02/19 10/03/19 06:59 06:59 06:59 Intake Total 2850.3 2689 Output Total 478 775 137 Balance 2372.3 1914 -137 Result Diagrams: 10/02/19 03:10 10/02/19 03:10 Additional Labs: Accuchecks 10/02/19 10/01/19 10/01/19 10:10 22:21 16:17 POC Glucose 91 79 88 10/01/19 10:44 POC Glucose 95 Hospitalist ROS - Medication Medications: Active Medications Generic Name Dose Route Start Last Admin Trade Name Екатерина PRN Reason Stop Dose Admin Acetaminophen 650 mg 10/01/19 00:02 10/02/19 07:32 Tylenol WA 650 mg Q4H PRN Administration Headache/Fever or Pain Enoxaparin Sodium 30 mg 10/02/19 09:00 10/02/19 07:31 Lovenox SC 30 mg 0900 KAMARI Administration Levetiracetam 1,000 mg/ Device 100 mls @ 200 mls/hr 09/30/19 04:00 10/02/19 03:21 IVPB 100 mls 0400,1600 KAMARI Administration Dextrose/Sodium Chloride 1,000 mls @ 75 mls/hr 09/30/19 19:45 10/01/19 22:25 D5 1/2 Ns IV 1,000 mls .[id number] KAMARI Administration Lorazepam 2 mg 10/01/19 03:15 10/02/19 07:32 Ativan SLOW IVP 10/31/19 03:16 2 mg Q30MIN PRN Administration Breakthrough agitation Morphine Sulfate 2 mg 09/29/19 15:07 10/01/19 16:22 Morphine Sulfate SLOW IVP 10/29/19 15:07 2 mg Q1H PRN Administration Breakthrough Pain/Agitation Pantoprazole Sodium 40 mg 09/30/19 09:00 10/02/19 07:31 Protonix IVP 40 mg DAILY KAMARI Administration Propofol 1,000 mg 09/29/19 15:07 10/02/19 10:10 Diprivan IV 10/29/19 15:07 1,000 mg INF PRN Administration TO ACHIEVE GOAL RASS Protocol - Exam General Appearance: ill appearing Respiratory: CTAB Gastrointestinal: soft Psychiatric: lethargic Hosp A/P (1) Cardiac arrest Code(s): I46.9 - CARDIAC ARREST, CAUSE UNSPECIFIED Status: Acute (2) Acute respiratory disease Code(s): J06.9 - ACUTE UPPER RESPIRATORY INFECTION, UNSPECIFIED Status: Acute (3) Cardiomyopathy Code(s): I42.9 - CARDIOMYOPATHY, UNSPECIFIED Status: Active (4) Chronic obstructive lung disease Code(s): J44.9 - CHRONIC OBSTRUCTIVE PULMONARY DISEASE, UNSPECIFIED Status: Active (5) Diabetes mellitus type 2 Code(s): E11.9 - TYPE 2 DIABETES MELLITUS WITHOUT COMPLICATIONS Status: Active - Plan Patient most likely rest due to arrhythmia given his low EF of 15%, vfibb arrest with prolong cpr Mechanical ventilation and vent management as per CCU theraputic hypothermia completed Patient with no significant improvement mental status possible anoxic brain injury appreciate neurology input palliative care met with family yesterday to continue toward full code will discuss again today meeting with critical care and family given patient very low chances of any meaningful recovery Follow further cardiology and critical care recommendations Continue with supportive care Monitor electrolytes and replace as needed DVT prophylaxis with Lovenox GI prophylaxis Family meeting today for CODE STATUS
[2019-10-02] MEDS ORDERED: Morphine 4 MG/ML VIAL SLOW IVP PRN (11:28)
[2019-10-02] MEDS ORDERED: Lorazepam 2 MG/ML VIAL SLOW IVP PRN (11:29)
[2019-10-02] MEDS ORDERED: Scopolamine 1.5 mg/72 hour Patch TOP SCH (11:45)
[2019-10-02] MEDS ORDERED: Propofol 1,000 MG/100 ML VIAL IV ONE ×2 (13:32→13:33)
[2019-10-02] MEDS ORDERED: Piperacillin/Tazobactam 2.25 GM in Sodium Chloride 0.9% 100 ML IVPB SCH (14:00)
[2019-10-02 14:50] VITALS: BP 105/75
--- NOTE | 2019-10-02 16:36 | EEG ---
DATE OF SERVICE: 10/01/2019 ATTENDING PHYSICIAN: Vita Castro MD This EEG was performed using 24-channel [employer] video digital EEG machine with 24 disk electrodes. This was an extended 2 hours 10 minutes of inpatient video EEG recording. Digital analysis of the EEG was done for spike and seizure detection , which revealed significant abnormalities. BACKGROUND: The posterior background rhythm was not observed. HYPERVENTILATION: Not performed. PHOTIC STIMULATION: Not performed. SLEEP: No stage change was observed. SPELLS: Myoclonic jerks captured during the recording were associated with ictal correlate of spike and wave discharge. EEG DIAGNOSIS: 1. Generalized spike and wave discharge lasting for about 0.25 seconds alternating with periods of generalized voltage attenuation lasting between 1- 1.5 seconds throughout the recording. Duration of the periods of suppression became shorter when the diprivan was turned off. 2. Absence of posterior background rhythm. CLINICAL INTERPRETATION: This EEG is consistent with burst suppression. Myoclonic jerks were associated with ictal correlate. 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 Critical findings were communicated to Dr. Lao. Job ID: [id number] MTDD
--- NOTE | 2019-10-05 14:17 | DIS ---
DATE OF ADMISSION: 09/29/2019 DATE OF DISCHARGE: 10/02/2019 DATE OF : October 01. TIME OF : 1558 hours. CAUSE OF : 1. Most likely arrhythmia given his ejection fraction of 15% with cardiac arrest. 2. Acute respiratory disease. 3. Cardiomyopathy. 4. Chronic obstructive pulmonary disease. 5. Type 2 diabetes. HOSPITAL COURSE: A 69-year-old male with past medical history significant for cardiomyopathy with EF of 15%, status post AICD. EMS was called as the patient was having more and more short of breath. When they arrived, the patient was alert; however, he became lethargic and had lost the pulse initially, he was found to be in V-tach. They shocked him and did a CPR, then he went to the patient found to be in V-tach and V-fib, CPR was initiated and epinephrine was given as well as amiodarone. The patient arrived to the emergency room and the patient was intubated and started on Levophed and epinephrine drip and to ICU. Case was discussed with the drier and evaporator operator. During hospital stay, the patient had no significant change in status. He continued to require mechanical ventilation and pressors. Given there was no significant improvement in his mental status and possible anoxic brain injury, Neurology was consulted. Palliative Care also met with the family and discussion was made for possible palliative care. The patient was pronounced on October 01. Family was updated. Total time spent, 45 minutes. Job ID: [id number]
== END 2019-10-02 15:58 | disposition expired | DRG 308 ==
LOC: ERS 09:30 → CCU 09:59
PROVIDERS: ADMIT Internal Medicine; ATTEND Internal Medicine
PROC: 5A12012 Performance of Cardiac Output, Single, Manual (ICD-10-PCS; principal; 2019-09-29)
PROC: 0BH17EZ Insertion of Endotracheal Airway into Trachea, Via Natural or Artificial Opening (ICD-10-PCS; 2019-09-29)
PROC: 5A1935Z Respiratory Ventilation, Less than 24 Consecutive Hours (ICD-10-PCS; 2019-09-29)
DX: I47.2 Ventricular tachycardia (principal); J96.00 Acute respiratory failure, unspecified whether with hypoxia or hypercapnia; R40.2312 Coma scale, best motor response, none, at arrival to emergency department; R40.2112 Coma scale, eyes open, never, at arrival to emergency department; R40.2212 Coma scale, best verbal response, none, at arrival to emergency department; I42.8 Other cardiomyopathies; E87.2 Acidosis; G93.1 Anoxic brain damage, not elsewhere classified; I42.0 Dilated cardiomyopathy; Z68.41 Body mass index [BMI] 40.0-44.9, adult; R57.0 Cardiogenic shock; Z51.5 Encounter for palliative care; E11.9 Type 2 diabetes mellitus without complications; I44.7 Left bundle-branch block, unspecified; I27.20 Pulmonary hypertension, unspecified; J44.9 Chronic obstructive pulmonary disease, unspecified; G47.33 Obstructive sleep apnea (adult) (pediatric); E78.5 Hyperlipidemia, unspecified; G25.3 Myoclonus; I49.01 Ventricular fibrillation; E66.01 Morbid (severe) obesity due to excess calories; I46.2 Cardiac arrest due to underlying cardiac condition; I25.10 Atherosclerotic heart disease of native coronary artery without angina pectoris; I11.0 Hypertensive heart disease with heart failure; F17.210 Nicotine dependence, cigarettes, uncomplicated; Z95.810 Presence of automatic (implantable) cardiac defibrillator; Z79.4 Long term (current) use of insulin; Z88.1 Allergy status to other antibiotic agents
CPT/HCPCS: 31500; 36415; 36416; 36556; 51702; 70450; 71045; 71250; 80048; 80053; 80307; 81003; 81015; 82550; 82553; 82805; 83605; 83690; 83735; 83880; 84100; 84484; 85025; 85610; 85730; 86140; 87040; 87086; 93005; 93010; 94002; 94003; 95712; 95816; 95819; 95957; 96365; 96366; 96368; 96375; 96376; 99292; C9113; J0171; J0282; J1650; J1940; J1953; J2060; J2270; J2543; J2704; J3475; J3480; J3490; J7050; U0002